=== PATIENT | female | born 1995 | race Caucasian/White ===

== ENCOUNTER 2021-08-19 12:24 | Inpatient (IN) ==
[2021-08-19] MEDS ORDERED: ALUMINUM/MAGNESIUM SUSP 30 ML UDC PO PRN (13:06)
--- NOTE | 2021-08-19 13:09 | Obstetrical Progress Note ---
Date of Service August 19, 2021 Assessment & Plan (1) with 38 completed weeks gestation: (2) Upper abdominal pain: Plan: NOt sure what is going on at this point. NOt convinced this is labor although she is lisa--will monitor and recheck cervix. The pain she is describing not really consistent with labor pain as only upper abdomen and constant. Vitals are all wnl, no hypertension, pulse normal. Do not suspect she is having a PE given the description of the pain, and stable vitals, but will check pulse ox. Will get some labs, r/o atypical preeclampsia, and a RUQ ultrasound to evaluate the liver and the gall bladder. Fetus is a category one. Will continue to monitor closely. Subjective Patient is a [id number] who presents to labor and delivery with upper abdominal pain. She notes sudden onset of this pain at 4pm yesterday and it has persisted. she talked to the oncall doctor x 2. Recommended things for gas, hot shower/bath. She tried on dose of maalox last night and it did not touch it. She notes this is constant since onset. She rates it a 7 /10. Has a hard time finding a comfortable position because of this. She notes she feels sob because every time she tries to take a deep breath, she notes discomfort in the upper abdomen, not particularly in the chest. She notes this pain is across her upper abdomen both sides and goes up into the mid chest and occasionally in the left shoulder. Patient notes a little mucous d/c but no lof/vb. Patient notes she has her GB. Patient notes she has not had a lot of burping. Notes passing gas and had some small amount of diarrhea this am. She notes that she also has lower back pain that is coming and going. She initially was in the ED and briefly evaluated by Ed physician. He notes her EKG was wnl, pulse in 60s. He thought it really was labor and so now she is up here. If turns out not to be labor , he noted we could send her back downstairs. She notes good fm. Physical Exam Constitutional: WD/WN, vitals as above Cardiovascular: Extremities: + edema (tr); no calf tenderness Gastrointestinal (Abdomen): soft, gravid, nt Psychiatric: A+Ox3, euthymic affect Genitourinary: cx--1-2/50/-2/soft, cephalic toco--4-7 min, irregular efm--130s with mod variability, accels to 160s, no decels Results & Data ([facility]) Vital Signs (Past 12 Hours) Vital Signs Pulse BP 08/19/21 12:39 61 124/70 PG Care Time/CCT Total # of Minutes Spent Total Time Spent with Patient: Total time spent is greater than 50% in coordination of care (as documented) at patient's floor/unit and/or counseling patient: Coding Level of Care Code None Diagnoses with 38 completed weeks gestation Z3A.38 Upper abdominal pain R10.10
[2021-08-19 13:20] LABS: Hematocrit (blood only) 36.6 % (37-47); Hemoglobin 12.5 g/dL (12.0-16.0); Mean Corpuscular Hemoglobin 30.9 pg (25-34); Mean Corpuscular Hgb Conc 34.2 g/dL (32-36); Mean Corpuscular Volume 90.6 fL (80-100); RDW Coefficient of Variation 14.2 % (11.5-14.5); RDW Standard Deviation 47.1 fL (36.4-46.3); Red Blood Count 4.04 M/uL (4.2-5.4); White Blood Count 12.23 K/uL (4.8-10.8)
[2021-08-19 13:42] LABS: Basophils # (auto) 0.01 K/uL (0-0.2); Basophils % (auto) 0.1 %; Eosinophils # (auto) 0.01 K/uL (0-0.5); Eosinophils % (auto) 0.1 %; Immature Granulocytes % (auto) 0.8 %; Lymphocytes % (auto) 13.9 %; Mean Platelet Volume 10.6 fL (7.4-10.4); Monocytes # (auto) 0.77 K/uL (0.11-0.59); Monocytes % (auto) 6.3 %; Neutrophils # (auto) 9.64 K/uL (1.4-6.5); Neutrophils % (auto) 78.8 %; Platelet Count 95 K/uL (130-400); Platelet Estimate Decreased (Normal)
[2021-08-19 13:45] LABS: Alanine Aminotransferase 258 U/L (7-52); Albumin Globulin Ratio 1.3 (0.9-2); Albumin Level 3.4 gm/dl (3.4-5.0); Alkaline Phosphatase 107 U/L (34-104); Amylase 41 U/L (25-115); Anion Gap 9 (3-11); Aspartate Aminotransferase 221 U/L (13-39); BUN Creatinine Ratio 17.9 (10-20); Bilirubin,Total 2.1 mg/dl (0.2-1.0); Blood Urea Nitrogen 10 mg/dl (6-23); Carbon Dioxide 21 mmol/L (21-32); Chloride 102 mmol/L (98-107); Est GFR (African American) > 150.0 ml/min; Est GFR (Non-African American) 129.6 ml/min; Globulin 2.7 gm/dl (2.5-4.0); Glucose 76 mg/dl (70-99(Fasting)); Lipase 18 U/L (11-82); Potassium 4.1 mmol/L (3.5-5.1); Sodium 132 mmol/L (136-145); Total Protein 6.1 gm/dl (6.0-8.3)
[2021-08-19] MEDS: SIMETHICONE 80 MG CHEW PO PRN (13:47)
[2021-08-19] MEDS ORDERED: OXYTOCIN 30 UNITS/500 ML BAG IV PRN ×2 (13:54→14:00)
[2021-08-19] MEDS ORDERED: MAG SULFATE 6GM BOLUS FROM BAG IV ONE (13:58)
[2021-08-19] MEDS ORDERED: SODIUM CHLORIDE 0.9% INJ 10 ML VIAL ONE (14:19)
[2021-08-19] MEDS ORDERED: ePHEDrine sulfate 50 MG/ML AMP ONE (14:19)
[2021-08-19] MEDS ORDERED: BUPIVACAINE 0.25% 30 ML VIAL ONE (14:19)
--- NOTE | 2021-08-19 14:19 | History & Physical Report ---
Date of Service August 19, 2021 Assessment & Plan (1) with 38 completed weeks gestation: (2) Severe preeclampsia: Plan: Although patient pressures are normal, she demonstrates HELLP per her labs and has upper abdominal pain consistent with this. Therefore, she has pet with severe features. She will be admitted for induction. cx is favorable so will start with pitocin. Fetus category one. As she has severe features, will start mag sulfate prophylaxis. Discussed the situation with anesthesia. Patient desires epidural for her labor. Asked if we could place epidural now while plts still >90K in case they trend down with time. Then run the epidural when she has onset of contraction pain. Dr. Carrera is agreeable. Explained the situation to the patient and the father of the baby. They are appropriately distressed but express understanding of the situation and the plan. Anticipate . History of Present Illness Chief Complaint: upper abdominal pain Primary Care Provider: EVELYNE Giron Patient is a [id number] who presents to labor and delivery with upper abdominal pain. She notes sudden onset of this pain at 4pm yesterday and it has persisted. she talked to the oncall doctor x 2. Recommended things for gas, hot shower/bath. She tried on dose of maalox last night and it did not touch it. She notes this is constant since onset. She rates it a 7 /10. Has a hard time finding a comfortable position because of this. She notes she feels sob because every time she tries to take a deep breath, she notes discomfort in the upper abdomen, not particularly in the chest. She notes this pain is across her upper abdomen both sides and goes up into the mid chest and occasionally in the left shoulder. Patient notes a little mucous d/c but no lof/vb. Patient notes she has her GB. Patient notes she has not had a lot of burping. Notes passing gas and had some small amount of diarrhea this am. She notes that she also has lower back pain that is coming and going. She initially was in the ED and briefly evaluated by Ed physician. He notes her EKG was wnl, pulse in 60s. He thought it really was labor and so now she is up here. If turns out not to be labor , he noted we could send her back downstairs. She notes good fm. Labs drawn and plts are 95K( 13:10), ast 221, alt--258. Plts were 107K at 12:19. Labs were redrawn as I had not realized they were drawn in the ED. 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 OB Labs: Blood Type O Negative 01/23/21 Antibody Screen NEGATIVE 06/12/21 Hemoglobin 11.7 g/dL (12.0-16.0) L 06/12/21 Hematocrit 34.4 % (37-47) L 06/12/21 Mean Corpuscular Volume 94.4 fL (80-100) 01/23/21 Platelet Count 248 K/uL (130-400) 01/23/21 Rubella IgG Antibody Immune (Immune) 01/23/21 Rapid Plasma Reagin Nonreactive (Nonreactive) 01/23/21 Hepatitis B Surface Antigen Neg (Neg) 01/23/21 HIV (1&2) Ab and P24 Ag, 4th Gener Neg (Neg) 01/23/21 Glucose 1 Hour 50 gm Load 97 mg/dl (70-130) 06/12/21 OB Optional Labs: Chlamydia trachomatis RNA NOT DETECTED (NOT DETECTED)B 01/23/21 Neisseria gonorrhoeae RNA NOT DETECTED (NOT DETECTED) 01/23/21 Labs Reviewed: declines genetics/cf/sma GBS neg Allergies Allergy/AdvReac Type Severity Reaction Status Date / Time No Known Allergies Allergy Verified 08/14/21 14:47 Home Medications Medication Instructions Recorded Confirmed Type breast pump #1 ea 07/28/21 08/14/21 Rx prenat.vits,william,[id number]-[id number] 1 tab PO DAILY 08/19/21 08/19/21 History Patient History Medical History Back strain History of chicken pox No pertinent past medical history Surgical History H/O oral surgery Family History Grandmother (Maternal) Diabetes Father Hypertension Mother Hypertension Denies family history of Ovarian cancer Breast cancer Colorectal cancer Social History Smoking Status: Never smoker Second Hand Exposure: No; Hx Alcohol Use: No Hx Substance Use: No Preferred Language: Bur[place]ian Tobacco Stripper Hand Required: No Beliefs That Will Affect Care: None marital status: marital status details: Bal Murry (26) [phone] Current Living Situation: Spouse Current Living Situation Comment: lives with spouse, dogs current occupational status: employed 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 Other Information That Helps Us Care for You: No Feels Safe at Home: Yes Safety Concerns: Feels Safe At This Time caffeine: No Dental Care, Regularly: Yes Physical Activity Frequency: Daily Seatbelt Use: always Sunscreen Use: Yes Assistive Devices: None 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 Physical Exam Constitutional: WD/WN, vitals as above Cardiovascular: Extremities: + edema (tr); no calf tenderness Gastrointestinal (Abdomen): soft, gravid, nt Psychiatric: A+Ox3, euthymic affect Genitourinary: cx--1-2/50/-2/soft, cephalic toco--4-7 min, irregular efm--130s with mod variability, accels to 160s, no decels Results & Data ([facility]) Vital Signs (Past 12 Hours) Vital Signs Temp Pulse Resp BP Pulse Ox 08/19/21 14:16 70 100 08/19/21 14:11 76 100 08/19/21 14:06 65 100 08/19/21 14:01 87 100 08/19/21 13:56 55 L 100 08/19/21 13:51 54 L 100 08/19/21 13:46 60 100 08/19/21 13:41 54 L 100 08/19/21 13:36 56 L 100 08/19/21 13:31 61 100 08/19/21 13:26 54 L 100 08/19/21 13:21 66 100 08/19/21 12:47 37.2 C 20 08/19/21 12:39 61 124/70 Coding Level of Care Code None Diagnoses with 38 completed weeks gestation Z3A.38 Severe preeclampsia O14.10
[2021-08-19] MEDS ORDERED: fentaNYL citrate 100 MCG/2 ML VIAL ONE (14:20)
[2021-08-19] MEDS: LACTATED RINGER'S 1,000 ML IV PRN ×2 (14:22→18:37)
[2021-08-19] MEDS: MAGNESIUM SULFATE / WTR 40 GM/1,000 ML BAG IV SCH (14:41)
--- NOTE | 2021-08-19 14:49 | Anesthesiology Consultation ---
Date of Service August 19, 2021 Assessment & Plan (1) Encounter for pre-operative examination: Chart Review Chart Review: Acceptable Risk for Labor Epidural Consults Requested none ASA ASA3 Proposed Anesthesia Anesthesia Type: Labor Epidural Risk / Benefits Reviewed With: PT / POA / Parent / Guardian, Accepts Plan and Informed Consent Obtained Additional Comments: Platelets are currently stable at 95K. Plan is to place epidural now and to start the epidural infusion when the patient develops labor pains. Dr. Stokes is aware and amenable with the plan. History Height/Weight Height: 5 ft 3 in Weight: 84.368 kg Allergies Allergy/AdvReac Type Severity Reaction Status Date / Time No Known Allergies Allergy Verified 08/14/21 14:47 Medications Home Medications Medication Instructions Recorded Confirmed Last Taken breast pump #1 ea 07/28/21 08/14/21 Unknown prenat.vits,william,gtk-[id number] 1 tab PO DAILY 08/19/21 08/19/21 08/18/21 21:00 Active Medications Generic Name Dose Route Start Last Admin Trade Name Freq PRN Reason Stop Dose Admin Lactated Ringer's 1,000 mls @ 125 mls/hr 08/19/21 13:54 08/19/21 14:22 Lr IV 08/21/21 13:53 999 mls/hr .Q8H PRN Administration L&D Protocol Protocol Simethicone 80 mg 08/19/21 13:05 08/19/21 13:47 Simethicone 80 Mg Chew PO 09/18/21 13:04 80 mg Q6H PRN Administration gas pain Past Medical History Medical History Back strain History of chicken pox No pertinent past medical history Exercise / Class Metabolic Activity II 4-5 Yardwork/Stairs/Walk up hill Past Family History Family History Grandmother (Maternal) Diabetes Father Hypertension Mother Hypertension Denies family history of Ovarian cancer Breast cancer Colorectal cancer Past Surgical History Surgical History H/O oral surgery Past Anesthesia History No Hx of Anesthesia Complications and No Family Hx of Anesthesia Complications History of PONV No Hx of PONV and No Hx of Motion Sickness Social History Smoking Status: Never smoker Hx Alcohol Use: No Hx Substance Use: No substance use type: does not use Physical Exam Vital Signs Last Vital Signs Temp 99.0 F 08/19/21 12:47 Pulse 72 08/19/21 14:41 Resp 20 08/19/21 12:47 BP 124/70 08/19/21 12:39 Pulse Ox 100 08/19/21 14:41 ENMT Mouth: no dentition abnormality Thyromental Distance: > or= 3.5 Finger Breadths Mallampati Class: II Neck normal visual inspection Respiratory normal respiratory effort Auscultation: lungs clear to auscultation bilaterally Cardiovascular Rate/Rhythm: regular rate and regular rhythm Testing Laboratory Results 08/19/21 13:10 08/19/21 13:10
[2021-08-19] MEDS ORDERED: ONDANSETRON INJ 2 MG/ML 2 ML VIAL IV PRN (15:14)
[2021-08-19] MEDS ORDERED: ePHEDrine sulfate 50 MG/ML AMP IV PRN (15:14)
[2021-08-19] MEDS ORDERED: NALOXONE HCL 0.4 MG/1 ML VIAL/CARP IV PRN (15:14)
[2021-08-19] MEDS ORDERED: fentaNYL 2MCG/ML ROPIVACAINE 1.25MG/ML 100 ML BAG EPI PRN (15:14)
[2021-08-19] MEDS ORDERED: diphenhydrAMINE 50 MG/ML VIAL IV PRN (15:14)
[2021-08-19] MEDS ORDERED: NALBUPHINE HCL INJ 10 MG/ML AMP IV PRN (15:14)
[2021-08-19] MEDS ORDERED: NALOXONE HCL 1 MG in SODIUM CHLORIDE 0.9% 1000ML 1,000 ML IV PRN (15:14)
[2021-08-19 17:57] LABS: Hematocrit (blood only) 38.2 % (37-47); Mean Corpuscular Hemoglobin 31.1 pg (25-34); Mean Corpuscular Volume 91.4 fL (80-100); RDW Coefficient of Variation 14.3 % (11.5-14.5); RDW Standard Deviation 47.7 fL (36.4-46.3); Red Blood Count 4.18 M/uL (4.2-5.4)
[2021-08-19 18:16] LABS: Albumin Globulin Ratio 1.2 (0.9-2); Albumin Level 3.4 gm/dl (3.4-5.0); BUN Creatinine Ratio 16.1 (10-20); Bilirubin,Total 2.5 mg/dl (0.2-1.0); Calcium 8.9 mg/dl (8.5-10.1); Creatinine Clr Calc Pharmacy 142.7 ml/min; Est GFR (African American) 145.3 ml/min; Est GFR (Non-African American) 125.3 ml/min; Globulin 2.8 gm/dl (2.5-4.0); Potassium 4.1 mmol/L (3.5-5.1); Total Protein 6.2 gm/dl (6.0-8.3)
[2021-08-19 18:39] LABS: Mean Platelet Volume 10.8 fL (7.4-10.4); Platelet Count 81 K/uL (130-400)
--- NOTE | 2021-08-19 19:53 | Communication Note ---
Date of Service: August 19, 2021 The patient was starting to have labor pain. The epidural pump was initiated. The epidural was bolused with 3mL of 0.25% bupivacaine. The patient stated h aving improvement in her labor pain. VSS throughout.
--- NOTE | 2021-08-19 20:09 | Labor Progress Brief Note ---
Date of Service August 19, 2021 Subjective Patient got uncomfortable and got epidural dosed. she's feeling better now. Notes her upper abdominal pain is still there, but slightly better. She notes no itching. NO garrison/vision changes. no n/v. 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 uop good. alk phos wnl for . I called MEDARDO Soriano at [facility] , for a consultation. My big question was are we dealing with AFLP or Hellp. Unfortunately, can be hard to know. However, the management at this point is the same. Agreed with mag prophylaxis. As long as maternal and condition remain stable, ok to proceed with vaginal delivery. No reason to do c /s at this point. She did note that if her plts drop to below 50K that I should transfuse in case of c/s. Will get coags/fibrinogen with next draw but advised not to treat unless actively bleeding or proceed to c/s. Post delivery, continue mag and following labs to demonstrate stabilization/improvement. If don't improve, going to need to transfer to tertiary care center for specialist care. Dr. Posey does not think we need to do that at this point as they would not be doing anything differently. I explained this all to patient and FOB who expressed understanding. Admission and Anticipated Discharge Date Admission Date: August 19, 2021 Physical Exam Constitutional: WD/WN, vitals as above Cardiovascular: Extremities: + edema (tr); no calf tenderness Gastrointestinal (Abdomen): soft, nd, gravid, tender across upper abdomen mahendra in epigastric region Skin: no rashes, warm and dry (no jaundice) Neurologic: patellar DTR's 2+ bilat, sensation intact (no clonus) Psychiatric: A+Ox3, euthymic affect Genitourinary: cx--tight 3/75/-2 toco--q2-4min, runs of contractions, pit at 9 efm--140s with mod variability, accels to 160s, no decels Results & Data ([facility]) Vital Signs (Past 12 Hours) Vital Signs Temp Pulse Resp BP Pulse Ox 08/19/21 19:57 95 H 155/87 H 08/19/21 19:55 91 H 99 08/19/21 19:51 90 151/65 H 08/19/21 19:50 87 99 08/19/21 19:46 83 152/77 H 08/19/21 19:45 99 H 99 08/19/21 19:42 78 134/64 08/19/21 19:40 81 99 08/19/21 19:35 71 99 08/19/21 19:34 70 135/65 08/19/21 19:32 83 132/64 08/19/21 19:30 72 139/63 99 08/19/21 19:28 72 130/63 08/19/21 19:26 90 143/70 H 08/19/21 19:25 80 98 08/19/21 19:24 75 132/60 08/19/21 19:22 71 134/61 08/19/21 19:20 78 136/63 99 08/19/21 19:18 78 137/64 08/19/21 19:16 81 132/65 08/19/21 19:15 80 98 08/19/21 19:14 70 130/60 08/19/21 19:12 85 141/65 H 08/19/21 19:10 85 18 135/57 L 99 08/19/21 19:08 88 135/64 08/19/21 19:06 77 138/65 08/19/21 19:05 74 98 08/19/21 19:04 76 135/65 08/19/21 19:01 37.1 C 18 08/19/21 19:00 84 99 08/19/21 18:58 82 134/72 08/19/21 18:29 81 129/62 08/19/21 18:15 20 08/19/21 17:58 78 128/65 08/19/21 17:28 37.1 C 74 20 133/69 08/19/21 16:58 72 137/65 08/19/21 16:29 74 140/66 08/19/21 15:58 68 139/73 08/19/21 15:15 93 H 137/74 08/19/21 15:11 99 H 135/76 97 08/19/21 15:06 101 H 98 08/19/21 15:01 108 H 98 08/19/21 14:56 94 H 99 08/19/21 14:51 96 H 99 08/19/21 14:46 87 100 08/19/21 14:41 72 100 08/19/21 14:36 70 100 08/19/21 14:31 65 100 08/19/21 14:26 72 100 08/19/21 14:21 59 L 100 08/19/21 14:16 70 100 08/19/21 14:11 76 100 08/19/21 14:06 65 100 08/19/21 14:01 87 100 08/19/21 13:56 55 L 100 08/19/21 13:51 54 L 100 08/19/21 13:46 60 100 08/19/21 13:41 54 L 100 08/19/21 13:36 56 L 100 08/19/21 13:31 61 100 08/19/21 13:26 54 L 100 08/19/21 13:21 66 100 08/19/21 12:47 37.2 C 20 08/19/21 12:39 37.2 C 61 20 124/70 Coding Level of Care Code None Diagnoses HELLP (hemolytic anemia/elev liver enzymes/low platelets in ) O14.20
[2021-08-19] MEDS ORDERED: SODIUM CHLORIDE 0.9% 500 ML IV SCH (20:15)
[2021-08-19 21:37] LABS: Protein Creatinine Ratio Urine 0.3 (0-0.2)
[2021-08-19 22:39] LABS: Hematocrit (blood only) 37.6 % (37-47); Hemoglobin 12.8 g/dL (12.0-16.0); Mean Corpuscular Hemoglobin 31.1 pg (25-34); Mean Corpuscular Volume 91.5 fL (80-100); RDW Coefficient of Variation 14.3 % (11.5-14.5); RDW Standard Deviation 47.9 fL (36.4-46.3); Red Blood Count 4.11 M/uL (4.2-5.4); White Blood Count 12.05 K/uL (4.8-10.8)
[2021-08-19 22:40] LABS: Platelet Count 67 K/uL (130-400)
[2021-08-19 22:54] LABS: ALC (manual) 2.07 K/uL (1.2-3.4); ANC (manual) 9.57 K/uL (1.4-6.5); Lymphocytes # (manual) 2.07 K/uL (1.2-3.4); Lymphocytes % (manual) 17.2 %; Monocytes # (manual) 0.41 K/uL (0.11-0.59); Monocytes % (manual) 3.4 %; Neutrophils # (manual) 9.57 K/uL (1.4-6.5); Neutrophils % (manual) 79.4 %
[2021-08-19 22:58] LABS: Albumin Globulin Ratio 1.1 (0.9-2); Albumin Level 3.3 gm/dl (3.4-5.0); BUN Creatinine Ratio 17.2 (10-20); Calcium 8.3 mg/dl (8.5-10.1); Creatinine Clr Calc Pharmacy 152.6 ml/min; Est GFR (African American) 148.5 ml/min; Est GFR (Non-African American) 128.1 ml/min; Magnesium Therapeutic L&D Only 5.7 mg/dL (4.0-8.0); Potassium 4.4 mmol/L (3.5-5.1); Total Protein 6.3 gm/dl (6.0-8.3)
[2021-08-19 23:16] LABS: Fibrinogen 473 mg/dl (184-400); Prothrombin Time 9.7 Seconds (9.0-12.0)
[2021-08-19] MEDS ORDERED: SODIUM CHLORIDE 0.9% 250 ML IV PRN (23:24)
--- NOTE | 2021-08-19 23:28 | Labor Progress Brief Note ---
Date of Service August 19, 2021 Subjective comfortable with epidural. Still notes upper abdominal pain. 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 fetus category one. plts are dropping precipitously. Suspect when we repeat in 4 hours she will be less than 50K and will need transfusion. We only have 3 packs of plts in house. We are still potentially very remote from delivery--not in a good contraction pattern with pit at 13, dysfunctional. Discussed that at this hospital, our blood products are limited, mahendra plts. Given the rapidity of change in labs and mahendra drop in plts, I have recommended c/s while we are still above 50K and then transfuse after delivery when hopefully she will stabilize and improve and stop consuming plts. She expresses understanding of the situation and agrees with this course of action. I was hoping she would more quickly progress. Unfortunately am unable to adequately predict when she will deliver and may be many hours away yet. r/b of c/s discussed and consent reviewed and signed. Admission and Anticipated Discharge Date Admission Date: August 19, 2021 Physical Exam Physical Exam: cx--3/90/-2 toco--q2-4min, pit at 13, irregular and runs of contractions noted. efm--category one Constitutional: WD/WN, vitals as above Results & Data ([facility]) Vital Signs (Past 12 Hours) Vital Signs Temp Pulse Resp BP Pulse Ox 08/19/21 23:25 113 H 99 08/19/21 23:20 114 H 99 08/19/21 23:17 100 H 93 08/19/21 23:16 100 H 130/78 08/19/21 23:15 97 H 99 08/19/21 23:10 85 100 08/19/21 23:05 91 H 98 08/19/21 23:04 101 H 93 08/19/21 23:02 76 126/60 08/19/21 23:00 75 18 100 08/19/21 22:55 77 100 08/19/21 22:50 77 100 08/19/21 22:46 74 129/63 08/19/21 22:45 75 100 08/19/21 22:40 88 100 08/19/21 22:35 83 100 08/19/21 22:31 89 139/76 08/19/21 22:30 92 H 18 100 08/19/21 22:25 95 H 98 08/19/21 22:20 85 99 08/19/21 22:16 89 145/71 H 08/19/21 22:15 93 H 100 08/19/21 22:10 96 H 98 08/19/21 22:05 91 H 99 08/19/21 22:03 87 150/75 H 08/19/21 22:01 37.3 C 18 08/19/21 22:00 80 18 99 08/19/21 21:55 86 98 08/19/21 21:50 85 99 08/19/21 21:46 88 141/71 H 08/19/21 21:45 88 98 08/19/21 21:40 95 H 97 08/19/21 21:35 83 98 08/19/21 21:31 84 142/77 H 08/19/21 21:30 83 18 97 08/19/21 21:25 86 98 08/19/21 21:20 89 98 08/19/21 21:17 89 142/78 H 08/19/21 21:15 85 98 08/19/21 21:10 94 H 97 08/19/21 21:05 88 98 08/19/21 21:02 84 133/71 08/19/21 21:00 87 20 98 08/19/21 20:55 87 99 08/19/21 20:50 83 98 08/19/21 20:47 82 126/64 08/19/21 20:45 83 99 08/19/21 20:40 85 99 08/19/21 20:35 83 99 08/19/21 20:32 94 H 125/59 L 08/19/21 20:30 91 H 18 98 08/19/21 20:25 89 97 08/19/21 20:21 36.5 C 08/19/21 20:20 90 98 08/19/21 20:17 82 129/63 08/19/21 20:15 93 H 98 08/19/21 20:10 92 H 99 08/19/21 20:05 91 H 99 08/19/21 20:01 88 141/65 H 08/19/21 20:00 100 H 18 98 08/19/21 19:57 95 H 155/87 H 08/19/21 19:55 91 H 99 08/19/21 19:51 90 151/65 H 08/19/21 19:50 87 99 08/19/21 19:46 83 152/77 H 08/19/21 19:45 99 H 99 08/19/21 19:42 78 134/64 08/19/21 19:40 81 99 08/19/21 19:35 71 99 08/19/21 19:34 70 135/65 08/19/21 19:32 83 132/64 08/19/21 19:30 72 18 139/63 99 08/19/21 19:28 72 130/63 08/19/21 19:26 90 143/70 H 08/19/21 19:25 80 18 98 08/19/21 19:24 75 132/60 08/19/21 19:22 71 134/61 08/19/21 19:20 78 20 136/63 99 08/19/21 19:18 78 137/64 08/19/21 19:16 81 132/65 08/19/21 19:15 80 20 98 08/19/21 19:14 70 130/60 08/19/21 19:12 85 141/65 H 08/19/21 19:10 85 18 135/57 L 99 08/19/21 19:08 88 135/64 08/19/21 19:06 77 138/65 08/19/21 19:05 74 18 98 08/19/21 19:04 76 135/65 08/19/21 19:01 37.1 C 18 08/19/21 19:00 84 99 08/19/21 18:58 82 134/72 08/19/21 18:29 81 129/62 08/19/21 18:15 20 08/19/21 17:58 78 128/65 08/19/21 17:28 37.1 C 74 20 133/69 08/19/21 16:58 72 137/65 08/19/21 16:29 74 140/66 08/19/21 15:58 68 139/73 08/19/21 15:15 93 H 137/74 08/19/21 15:11 99 H 135/76 97 08/19/21 15:06 101 H 98 08/19/21 15:01 108 H 98 08/19/21 14:56 94 H 99 08/19/21 14:51 96 H 99 08/19/21 14:46 87 100 08/19/21 14:41 72 100 08/19/21 14:36 70 100 08/19/21 14:31 65 100 08/19/21 14:26 72 100 08/19/21 14:21 59 L 100 08/19/21 14:16 70 100 08/19/21 14:11 76 100 08/19/21 14:06 65 100 08/19/21 14:01 87 100 08/19/21 13:56 55 L 100 08/19/21 13:51 54 L 100 08/19/21 13:46 60 100 08/19/21 13:41 54 L 100 08/19/21 13:36 56 L 100 08/19/21 13:31 61 100 08/19/21 13:26 54 L 100 08/19/21 13:21 66 100 08/19/21 12:47 37.2 C 20 08/19/21 12:39 37.2 C 61 20 124/70 Coding Level of Care Code None Diagnoses HELLP (hemolytic anemia/elev liver enzymes/low platelets in ) O14.20
[2021-08-19] MEDS ORDERED: LACTATED RINGER'S 1,000 ML IV SCH (23:30)
[2021-08-19] MEDS ORDERED: LIDOCAINE 2%/EPINEPHRINE 1:200,000 20 ML SDV ONE (23:33)
[2021-08-19] MEDS ORDERED: CITRIC ACID/SODIUM CITRATE 15 ML UDC PO SCH (23:35)
[2021-08-20] MEDS ORDERED: MoRPHine SULFATE PF 1 MG/ML 10 ML AMP/VIAL ONE (00:19)
[2021-08-20] MEDS ORDERED: miSOPROStoL 200 MCG TAB ONE (00:30)
[2021-08-20] MEDS ORDERED: OXYTOCIN 10 UNITS/ML 10ML VIAL ONE (00:31)
[2021-08-20] MEDS ORDERED: CARBOPROST TROMETHAMINE 250 MCG/ML AMPUL ONE (00:31)
[2021-08-20] MEDS ORDERED: PHENYLEPHRINE 100MCG/ML 5ML SYR ONE (00:32)
[2021-08-20] MEDS ORDERED: LACTATED RINGER'S 500 ML IV PRN ×2 (00:33→01:09)
[2021-08-20] MEDS ORDERED: NALOXONE HCL 1 MG in SODIUM CHLORIDE 0.9% 1000ML 1,000 ML IV PRN ×2 (00:33→01:09)
[2021-08-20] MEDS ORDERED: diphenhydrAMINE 50 MG/ML VIAL IV PRN ×3 (00:33→19:09)
[2021-08-20] MEDS ORDERED: MoRPHine SULFATE PF 1 MG/ML 10 ML AMP/VIAL INT SPINAL ONE ×2 (00:33→01:09)
[2021-08-20] MEDS ORDERED: NALOXONE HCL 0.4 MG/1 ML VIAL/CARP IV PRN ×2 (00:33→01:09)
[2021-08-20] MEDS ORDERED: NALBUPHINE HCL INJ 10 MG/ML AMP IV PRN ×2 (00:33→01:09)
[2021-08-20] MEDS ORDERED: NALOXONE HCL 0.08 MG in SYRINGE 1.8 ML IV PRN ×2 (00:33→01:09)
[2021-08-20] MEDS ORDERED: MEPERIDINE HCL 25 MG/ML CARP/VIAL IV PRN (00:33)
[2021-08-20] MEDS ORDERED: KETOROLAC 30 MG/ML VIAL IV PRN (00:33)
[2021-08-20] MEDS ORDERED: ONDANSETRON INJ 2 MG/ML 2 ML VIAL IV PRN ×3 (00:33→19:09)
[2021-08-20] MEDS ORDERED: ePHEDrine sulfate 50 MG/ML AMP IV PRN ×2 (00:33→01:09)
[2021-08-20] MEDS ORDERED: ONDANSETRON INJ 2 MG/ML 2 ML VIAL ONE (00:42)
[2021-08-20] MEDS ORDERED: NO NARCOTICS OR SEDATIVES SCH ×2 (00:45→01:15)
[2021-08-20] MEDS ORDERED: SODIUM CHLORIDE 0.9% 1000ML 1,000 ML IV SCH ×2 (00:45→01:15)
[2021-08-20] MEDS ORDERED: DC INTRASPINAL MORPHINE SCH ×2 (00:45→01:15)
[2021-08-20] MEDS ORDERED: SUPERCREAM 0.870% 15 GM JAR EXT PRN (01:12)
[2021-08-20] MEDS ORDERED: SENNA 8.6 MG TAB PO PRN (01:12)
[2021-08-20] MEDS ORDERED: HYDROCORTISONE ACETATE 25 MG SUPP PR PRN (01:12)
[2021-08-20] MEDS ORDERED: BENZOCAINE 20% AER SPR 82.5 GM CAN EXT PRN (01:12)
[2021-08-20] MEDS ORDERED: DIPHTHERIA/TETANUS/PERTUSSIS 0.5 ML SYR/VIAL IM ONE (01:12)
[2021-08-20] MEDS ORDERED: MAGNESIUM HYDROXIDE SUSP 30 ML UDC PO PRN (01:12)
[2021-08-20] MEDS ORDERED: LACTATED RINGER'S 1,000 ML IV SCH (01:15)
--- NOTE | 2021-08-20 01:15 | Anesthesiology Progress Note ---
Date of Service August 20, 2021 Anesthesia Post Procedure Vital Signs Vital Signs: Temp Pulse Resp BP Pulse Ox 08/20/21 01:14 100 H 99 08/20/21 01:10 93 H 134/65 08/19/21 23:54 20 08/19/21 23:50 105 H 97 08/19/21 23:46 100 H 141/75 H 08/19/21 23:45 109 H 99 08/19/21 23:41 106 H 147/77 H 08/19/21 23:40 108 H 99 08/19/21 23:30 18 08/19/21 23:25 113 H 99 08/19/21 23:20 114 H 99 08/19/21 23:17 100 H 93 08/19/21 23:16 100 H 130/78 08/19/21 23:15 97 H 99 08/19/21 23:10 85 100 08/19/21 23:05 91 H 98 08/19/21 23:04 101 H 93 08/19/21 23:02 76 126/60 08/19/21 23:00 75 18 100 08/19/21 22:55 77 100 08/19/21 22:50 77 100 08/19/21 22:46 74 129/63 08/19/21 22:45 75 100 08/19/21 22:40 88 100 08/19/21 22:35 83 100 08/19/21 22:31 89 139/76 08/19/21 22:30 92 H 18 100 08/19/21 22:25 95 H 98 08/19/21 22:20 85 99 08/19/21 22:16 89 145/71 H 08/19/21 22:15 93 H 100 08/19/21 22:10 96 H 98 08/19/21 22:05 91 H 99 08/19/21 22:03 87 150/75 H 08/19/21 22:01 99.1 F 18 08/19/21 22:00 80 18 99 08/19/21 21:55 86 98 08/19/21 21:50 85 99 08/19/21 21:46 88 141/71 H 08/19/21 21:45 88 98 08/19/21 21:40 95 H 97 08/19/21 21:35 83 98 08/19/21 21:31 84 142/77 H 08/19/21 21:30 83 18 97 08/19/21 21:25 86 98 08/19/21 21:20 89 98 08/19/21 21:17 89 142/78 H 08/19/21 21:15 85 98 08/19/21 21:10 94 H 97 08/19/21 21:05 88 98 08/19/21 21:02 84 133/71 08/19/21 21:00 87 20 98 08/19/21 20:55 87 99 08/19/21 20:50 83 98 08/19/21 20:47 82 126/64 08/19/21 20:45 83 99 08/19/21 20:40 85 99 08/19/21 20:35 83 99 08/19/21 20:32 94 H 125/59 L 08/19/21 20:30 91 H 18 98 08/19/21 20:25 89 97 08/19/21 20:21 97.7 F 08/19/21 20:20 90 98 08/19/21 20:17 82 129/63 08/19/21 20:15 93 H 98 08/19/21 20:10 92 H 99 08/19/21 20:05 91 H 99 08/19/21 20:01 88 141/65 H 08/19/21 20:00 100 H 18 98 08/19/21 19:57 95 H 155/87 H 08/19/21 19:55 91 H 99 08/19/21 19:51 90 151/65 H 08/19/21 19:50 87 99 08/19/21 19:46 83 152/77 H 08/19/21 19:45 99 H 99 08/19/21 19:42 78 134/64 08/19/21 19:40 81 99 08/19/21 19:35 71 99 08/19/21 19:34 70 135/65 08/19/21 19:32 83 132/64 08/19/21 19:30 72 18 139/63 99 08/19/21 19:28 72 130/63 08/19/21 19:26 90 143/70 H 08/19/21 19:25 80 18 98 08/19/21 19:24 75 132/60 08/19/21 19:22 71 134/61 08/19/21 19:20 78 20 136/63 99 01/18/22 19:18 78 137/64 08/19/21 19:16 81 132/65 08/19/21 19:15 80 20 98 08/19/21 19:14 70 130/60 08/19/21 19:12 85 141/65 H 08/19/21 19:10 85 18 135/57 L 99 08/19/21 19:08 88 135/64 08/19/21 19:06 77 138/65 08/19/21 19:05 74 18 98 08/19/21 19:04 76 135/65 08/19/21 19:01 98.8 F 18 08/19/21 19:00 84 99 08/19/21 18:58 82 134/72 08/19/21 18:29 81 129/62 08/19/21 18:15 20 08/19/21 17:58 78 128/65 08/19/21 17:28 98.8 F 74 20 133/69 08/19/21 16:58 72 137/65 08/19/21 16:29 74 140/66 08/19/21 15:58 68 139/73 08/19/21 15:15 93 H 137/74 08/19/21 15:11 99 H 135/76 97 08/19/21 15:06 101 H 98 08/19/21 15:01 108 H 98 08/19/21 14:56 94 H 99 08/19/21 14:51 96 H 99 08/19/21 14:46 87 100 08/19/21 14:41 72 100 08/19/21 14:36 70 100 08/19/21 14:31 65 100 08/19/21 14:26 72 100 08/19/21 14:21 59 L 100 08/19/21 14:16 70 100 08/19/21 14:11 76 100 08/19/21 14:06 65 100 08/19/21 14:01 87 100 08/19/21 13:56 55 L 100 08/19/21 13:51 54 L 100 08/19/21 13:46 60 100 08/19/21 13:41 54 L 100 08/19/21 13:36 56 L 100 08/19/21 13:31 61 100 08/19/21 13:26 54 L 100 08/19/21 13:21 66 100 01/18/22 12:47 99.0 F 20 08/19/21 12:39 99.0 F 61 20 124/70 Pain Intensity Lower Abdomen: Pain Intensity: 8 Transfer of Care Handoff Completed per policy Notes Mental Status: alert / awake / arousable and participated in evaluation Nausea / Vomiting: adequately controlled Pain: adequately controlled Airway Patency, RR, SpO2: stable & adequate BP & HR: stable & adequate Hydration State: stable & adequate Neuraxial Anesthesia: was administered and sensory block is resolving Anesthetic Complications: no major complications apparent and Pt Satisfied with anesthetic care
--- NOTE | 2021-08-20 01:24 | Operative Report ---
PG Post Operative Report Pre & Post Diagnosis preop diagnosis-- at 38 weeks worsening HELLP syndrome remote from delivery postop diagnosis--same Operation Date: 08/19/21 23:25 <No data on this case meets the specified criteria> I identified the patient and participated in the time-out.: Yes Procedure procedure--primary low transverse Operation Date: 08/19/21 23:25 <No data on this case meets the specified criteria> Surgeon Kim Stokes MD, FACOG Grounds Restoration Specialist Dr. Rodriguez Estimated Blood Loss 1,000 Findings Consistent with Post-Op Diagnosis viable male , body cord, clear fluid, apgars 7/8. nl uterus/tubes /ovs Fluids 1000cc, uop--200cc Specimens placenta, cord blood Drains buck Anesthesia Type Labor Epidural Complications none Disposition Accompanied Patient To Recovery: Yes Disposition: L&D Indications Patient is a 25yowf with iup at 38 weeks and worsening hellp syndrome, remote from labor. Description of Procedure The patient was taken to the operating room where she was identified verbally and by bracelet. She was seated on the operating table where her epidural anesthetic was dosed by anesthesia. She was then placed in the supine position with a leftward tilt. A Buck catheter had been previously placed sterilely. the patient was prepped and draped in a normal standard fashion. the anesthetic was tested and found to be adequate. A time-out was held, identifying correct patient, procedure, positioning and preoperative antibiotics. There were no concerns. A Pfannenstiel skin incision was made with a knife and taken down to the underlying layer of fascia with the knife and Bovie electrocautery. Bleeding was attended to with the Bovie. The fascia was incised in the midline with the knife and taken out laterally with scissors. The superior edge of the fascial incision was grasped, elevated and the underlying layer of rectus muscle was taken off bluntly and with scissors. In a similar fashion, the inferior edge of the fascial incision was grasped, elevated and the underlying layer of rectus muscle was taken off bluntly and with scissors. The muscles were bluntly in the midline. The peritoneum was entered bluntly. The incision was then stretched. The bladder blade was placed. The vesicouterine peritoneum was identified, entered with scissors and taken out laterally with scissors. The bladder flap was created digitally A hysterotomy incision was scored with a knife and the incision was stretched superiorly and inferiorly with the bullet swaging machine operator's fingers. The operators hand was placed into the incision and the head was delivered atraumatically. Body cord noted. The nose and mouth were bulb suctioned. the rest of the infant was then delivered without difficulty. The nose and mouth were again bulb suctioned. The cord was clamped and cut and the was then handed off to the awaiting dispatcher refinery for drying and attention. Cord blood and segment were obtained. The placenta was Manually extracted. The uterus was exteriorized and cleared of all clot and debris with moistened laparotomy sponges. The hysterotomy incision was repaired in two layers, the first in a running locked layer, the second in an imbricating layer. The uterus was boggy and treated with intrauterine hemobate and dilute pitocin. Posterior cul-de-sac was irrigated and cleared of all clot and debris. The hysterotomy incision was again inspected and found to be hemostatic. the uterus was reinteriorized. Hysterotomy incision was again inspected and 2 figure of eight stutures needed for hemostasis. Edilma was placed over the incision and pressure held for about three minutes. Hemostasis was found to be good. Rectus muscles were closely inspected and no bleeding noted. The fascia was then reapproximated with 0 Vicryl starting at the edges and meeting in the midline. The subcuticular tissues were copiously irrigated and bleeding was attended to with cautery. The skin was then closed with 4-0 Vicryl in a subcuticular fashion. All sponge lap and needle counts were correct x 2. The patient was then frog legged and about 500cc of blood and clot was removed from the uterus with fundal massage. 800mcg of cytotec was placed rectally. The uterus was firm after this. The patient was taken to labor and delivery for recovery in stable condition. Bleeding during the surgery itself was not excessive other than the boggy uterus which was treated. There was not significant oozing. I attest to the content of the Intraoperative Record and any orders documented therein. Any exceptions are noted below. OB Procedure Charges 70157
--- NOTE | 2021-08-20 01:26 | Communication Note ---
Date of Service: August 20, 2021 Plan or recheking labs in 2 hours from surgery at 3am. Will need to stay away from nsaids and tylenol for pain management at this time because of plts and elevated liver functions. Patient was given duramorph in her epidural. Epidural remains indwelling until recovery of plts makes it safe to remove. Will continue to watch the patient very closely.
[2021-08-20] MEDS ORDERED: OXYTOCIN 20 UNITS in LACTATED RINGER'S 1,000 ML IV SCH (01:30)
[2021-08-20] MEDS: MoRPHine SULFATE 2 MG/ML CARP IV PRN ×3 (01:38→17:55)
[2021-08-20 02:00] LABS: Base Excess Cord Arterial Bld -5.4 mEq/L (-9-1.8); Base Excess Cord Venous Blood -5.8 mEq/L (-7.7-1.9); CO2 Cord Arterial Blood 55 mmHg (39.1-73.5); Cord Venous Blood HCO3 21 mmol/L (18.4-26.8); Cord Venous Blood PCO2 46 mmHg (30.4-57.2); Cord Venous Blood PO2 18 mmHg (14.1-43.3); Cord Venous Blood pH 7.28 (7.20-7.44); HCO3 Cord Arterial Blood 23 mmol/L (19.7-28.5); Oxygen Sat Cord Arterial Blood < 60.0 % (<60); PO2 Cord Arterial Blood 13 mmHg (4.1-31.7); pH Cord Arterial Blood 7.24 (7.1-7.38)
[2021-08-20 02:01] LABS: O2 Saturation Cord Venous Bld < 60.0 % (<68)
[2021-08-20 03:14] LABS: Hematocrit (blood only) 31.4 % (37-47); Hemoglobin 10.8 g/dL (12.0-16.0); Mean Corpuscular Hemoglobin 31.3 pg (25-34); Mean Corpuscular Hgb Conc 34.4 g/dL (32-36); RDW Coefficient of Variation 14.5 % (11.5-14.5); RDW Standard Deviation 47.9 fL (36.4-46.3); Red Blood Count 3.45 M/uL (4.2-5.4); White Blood Count 12.08 K/uL (4.8-10.8)
[2021-08-20 03:26] LABS: Fibrinogen 403 mg/dl (184-400); Partial Thromboplastin Ratio 1.1; Partial Thromboplastin Time 28.5 Seconds (21.0-31.0); Prothrombin Time 10.1 Seconds (9.0-12.0)
[2021-08-20 03:30] LABS: Mean Platelet Volume 10.9 fL (7.4-10.4); Platelet Count 60 K/uL (130-400)
[2021-08-20 03:33] LABS: Albumin Globulin Ratio 1.2 (0.9-2); Albumin Level 2.9 gm/dl (3.4-5.0); BUN Creatinine Ratio 17.7 (10-20); Bilirubin,Total 2.5 mg/dl (0.2-1.0); Calcium 7.2 mg/dl (8.5-10.1); Creatinine Clr Calc Pharmacy 142.7 ml/min; Est GFR (African American) 145.3 ml/min; Est GFR (Non-African American) 125.3 ml/min; Globulin 2.4 gm/dl (2.5-4.0); Magnesium Therapeutic L&D Only 5.6 mg/dL (4.0-8.0); Potassium 4.2 mmol/L (3.5-5.1); Total Protein 5.3 gm/dl (6.0-8.3)
--- NOTE | 2021-08-20 03:47 | Obstetrical Progress Note ---
Date of Service August 20, 2021 Assessment & Plan (1) HELLP (hemolytic anemia/elev liver enzymes/low platelets in ): Clinically doing better. plts are starting to flatten out from 67K prior to surgery to 60K now. Lfts have bumped slightly bumped. hgb is 10.8 c/w c- section. coags are wnl. fibrinogen drop c/w fibrinogen. Continues on Mag. Will repeat labs in 4 hours. Continue to watch closely. Subjective Patient is sitting in bed, alert and oriented. She notes that her upper abdominal pain is much improved. She is feeling better. Per nursing, her bleeding is scant and her uterus is firm. Physical Exam Constitutional WD/WN, vitals as above Psychiatric A+Ox3, euthymic affect Results & Data ([facility]) Vital Signs (Past 12 Hours) Vital Signs Temp Pulse Resp BP Pulse Ox 08/20/21 03:40 114 H 96/45 L 08/20/21 03:39 122 H 96 08/20/21 03:34 122 H 95 08/20/21 03:30 120 H 125/57 L 08/20/21 03:29 117 H 96 08/20/21 03:24 118 H 97 08/20/21 03:20 112 H 135/63 08/20/21 03:19 111 H 96 08/20/21 03:14 114 H 97 08/20/21 03:10 118 H 135/62 08/20/21 03:09 120 H 20 97 08/20/21 03:04 119 H 96 08/20/21 03:00 112 H 135/63 08/20/21 02:59 114 H 96 08/20/21 02:54 111 H 96 08/20/21 02:50 116 H 143/93 H 08/20/21 02:49 106 H 96 08/20/21 02:44 115 H 97 08/20/21 02:40 122 H 127/60 08/20/21 02:39 124 H 96 08/20/21 02:34 119 H 97 08/20/21 02:30 110 H 126/58 L 08/20/21 02:29 118 H 96 08/20/21 02:24 120 H 96 08/20/21 02:20 123 H 134/71 08/20/21 02:19 122 H 96 08/20/21 02:17 115 H 94 01/19/22 02:14 112 H 91 08/20/21 02:09 118 H 20 124/57 L 96 08/20/21 02:04 110 H 97 08/20/21 02:00 115 H 132/63 08/20/21 01:59 120 H 18 96 08/20/21 01:58 115 H 94 08/20/21 01:54 115 H 95 08/20/21 01:50 100 H 128/59 L 08/20/21 01:49 100 H 18 128/59 L 97 08/20/21 01:44 92 H 97 08/20/21 01:39 100 H 20 128/59 L 97 08/20/21 01:34 98 H 97 08/20/21 01:30 86 131/57 L 08/20/21 01:29 100 H 18 128/59 L 98 08/20/21 01:24 92 H 99 08/20/21 01:23 86 146/78 H 08/20/21 01:19 92 H 18 97 08/20/21 01:14 100 H 99 08/20/21 01:10 93 H 134/65 08/20/21 01:09 37.1 C 20 08/19/21 23:54 20 08/19/21 23:50 105 H 97 08/19/21 23:46 100 H 141/75 H 08/19/21 23:45 109 H 99 08/19/21 23:41 106 H 147/77 H 08/19/21 23:40 108 H 99 08/19/21 23:30 18 08/19/21 23:25 113 H 99 08/19/21 23:20 114 H 99 08/19/21 23:17 100 H 93 08/19/21 23:16 100 H 130/78 08/19/21 23:15 97 H 99 08/19/21 23:10 85 100 08/19/21 23:05 91 H 98 08/19/21 23:04 101 H 93 08/19/21 23:02 76 126/60 08/19/21 23:00 75 18 100 08/19/21 22:55 77 100 08/19/21 22:50 77 100 08/19/21 22:46 74 129/63 08/19/21 22:45 75 100 08/19/21 22:40 88 100 08/19/21 22:35 83 100 08/19/21 22:31 89 139/76 08/19/21 22:30 92 H 18 100 08/19/21 22:25 95 H 98 08/19/21 22:20 85 99 08/19/21 22:16 89 145/71 H 08/19/21 22:15 93 H 100 08/19/21 22:10 96 H 98 08/19/21 22:05 91 H 99 08/19/21 22:03 87 150/75 H 08/19/21 22:01 37.3 C 18 08/19/21 22:00 80 18 99 08/19/21 21:55 86 98 08/19/21 21:50 85 99 08/19/21 21:46 88 141/71 H 08/19/21 21:45 88 98 08/19/21 21:40 95 H 97 08/19/21 21:35 83 98 08/19/21 21:31 84 142/77 H 08/19/21 21:30 83 18 97 08/19/21 21:25 86 98 08/19/21 21:20 89 98 08/19/21 21:17 89 142/78 H 08/19/21 21:15 85 98 08/19/21 21:10 94 H 97 08/19/21 21:05 88 98 08/19/21 21:02 84 133/71 08/19/21 21:00 87 20 98 08/19/21 20:55 87 99 08/19/21 20:50 83 98 08/19/21 20:47 82 126/64 08/19/21 20:45 83 99 08/19/21 20:40 85 99 08/19/21 20:35 83 99 08/19/21 20:32 94 H 125/59 L 08/19/21 20:30 91 H 18 98 08/19/21 20:25 89 97 08/19/21 20:21 36.5 C 08/19/21 20:20 90 98 08/19/21 20:17 82 129/63 08/19/21 20:15 93 H 98 08/19/21 20:10 92 H 99 08/19/21 20:05 91 H 99 08/19/21 20:01 88 141/65 H 08/19/21 20:00 100 H 18 98 08/19/21 19:57 95 H 155/87 H 08/19/21 19:55 91 H 99 08/19/21 19:51 90 151/65 H 08/19/21 19:50 87 99 08/19/21 19:46 83 152/77 H 08/19/21 19:45 99 H 99 08/19/21 19:42 78 134/64 08/19/21 19:40 81 99 08/19/21 19:35 71 99 08/19/21 19:34 70 135/65 08/19/21 19:32 83 132/64 08/19/21 19:30 72 18 139/63 99 08/19/21 19:28 72 130/63 08/19/21 19:26 90 143/70 H 08/19/21 19:25 80 18 98 08/19/21 19:24 75 132/60 08/19/21 19:22 71 134/61 08/19/21 19:20 78 20 136/63 99 08/19/21 19:18 78 137/64 08/19/21 19:16 81 132/65 08/19/21 19:15 80 20 98 08/19/21 19:14 70 130/60 08/19/21 19:12 85 141/65 H 08/19/21 19:10 85 18 135/57 L 99 08/19/21 19:08 88 135/64 08/19/21 19:06 77 138/65 08/19/21 19:05 74 18 98 08/19/21 19:04 76 135/65 08/19/21 19:01 37.1 C 18 08/19/21 19:00 84 99 08/19/21 18:58 82 134/72 08/19/21 18:29 81 129/62 08/19/21 18:15 20 08/19/21 17:58 78 128/65 08/19/21 17:28 37.1 C 74 20 133/69 08/19/21 16:58 72 137/65 08/19/21 16:29 74 140/66 08/19/21 15:58 68 139/73
[2021-08-20] MEDS: MEPERIDINE HCL 25 MG/ML CARP/VIAL IV PRN ×2 (03:55→15:37)
[2021-08-20] MEDS: OXYTOCIN IV SCH ×2 (04:42→18:28)
[2021-08-20] MEDS: SODIUM CHLORIDE 0.9% IV SCH ×2 (04:42→18:28)
[2021-08-20] MEDS: MAGNESIUM SULFATE / WTR 40 GM/1,000 ML BAG IV SCH (07:01)
[2021-08-20 07:31] LABS: Hemoglobin 9.9 g/dL (12.0-16.0); Mean Corpuscular Hemoglobin 30.8 pg (25-34); Mean Corpuscular Hgb Conc 34.1 g/dL (32-36); Mean Corpuscular Volume 90.3 fL (80-100); RDW Coefficient of Variation 14.6 % (11.5-14.5); RDW Standard Deviation 48.1 fL (36.4-46.3); Red Blood Count 3.21 M/uL (4.2-5.4); White Blood Count 12.31 K/uL (4.8-10.8)
[2021-08-20 07:35] LABS: Mean Platelet Volume 10.1 fL (7.4-10.4); Platelet Count 42 K/uL (130-400)
[2021-08-20 07:57] LABS: Albumin Globulin Ratio 1.2 (0.9-2); Albumin Level 2.7 gm/dl (3.4-5.0); BUN Creatinine Ratio 19.4 (10-20); Bilirubin,Total 2.7 mg/dl (0.2-1.0); Creatinine Clr Calc Pharmacy 142.7 ml/min; Est GFR (African American) 145.3 ml/min; Est GFR (Non-African American) 125.3 ml/min; Globulin 2.2 gm/dl (2.5-4.0); Magnesium Therapeutic L&D Only 5.8 mg/dL (4.0-8.0); Potassium 4.2 mmol/L (3.5-5.1); Total Protein 4.9 gm/dl (6.0-8.3)
[2021-08-20] MEDS ORDERED: DOCUSATE SODIUM 100 MG CAP PO SCH (08:00)
[2021-08-20] MEDS ORDERED: PRENATAL VITAMIN 1 TAB PO SCH (08:00)
[2021-08-20] MEDS ORDERED: FERROUS SULFATE 325 MG TAB PO SCH (08:00)
[2021-08-20] MEDS ORDERED: SODIUM CHLORIDE 0.9% 250 ML IV PRN (08:18)
--- NOTE | 2021-08-20 08:26 | Obstetrical Progress Note ---
Date of Service August 20, 2021 Assessment & Plan (1) HELLP (hemolytic anemia/elev liver enzymes/low platelets in ): Overall clinically improved. lfts are now coming down. h/h stable. Unfortunately plts now 42K. Given that she is recent pp c/s, plan to transfuse platelets. UOP >100cc per hour. Still has some blood tinged urine, but seems to be clearing up slowly. Likely from struggle to deliver the head. Will continue mag for 24 hours. Continue to monitor closely. Subjective Patient feeling overall better. Upper abd pain improved. Normal incisional pain noted. fundus firm. Lochia small. Physical Exam Constitutional WD/WN, vitals as above Cardiovascular Extremities: no calf tenderness and no edema Gastrointestinal (Abdomen) ff/appropriately tender at u dressing c/d/i. Neurologic patellar DTR's 2+ bilat, sensation intact (no clonus) Results & Data ([facility]) Vital Signs (Past 12 Hours) Vital Signs Temp Pulse Resp BP Pulse Ox 08/20/21 08:15 113 H 94 08/20/21 08:11 121 H 94 08/20/21 08:10 124 H 95 08/20/21 08:06 114 H 94 08/20/21 08:05 116 H 95 08/20/21 08:00 119 H 95 08/20/21 07:55 114 H 95 08/20/21 07:50 117 H 98 08/20/21 07:45 106 H 95 08/20/21 07:40 105 H 95 08/20/21 07:35 105 H 95 08/20/21 07:30 37.1 C 101 H 20 96 08/20/21 07:25 103 H 97 08/20/21 07:20 107 H 98 08/20/21 07:15 112 H 97 08/20/21 07:10 109 H 98 08/20/21 07:05 119 H 98 08/20/21 07:00 113 H 113/69 99 08/20/21 06:55 114 H 97 08/20/21 06:50 107 H 95 08/20/21 06:47 110 H 94 08/20/21 06:45 108 H 94 08/20/21 06:42 109 H 94 08/20/21 06:40 108 H 95 08/20/21 06:37 109 H 94 08/20/21 06:35 107 H 95 08/20/21 06:31 105 H 94 08/20/21 06:30 106 H 95 08/20/21 06:25 106 H 95 08/20/21 06:20 108 H 94 08/20/21 06:15 107 H 94 08/20/21 06:10 108 H 94 08/20/21 06:05 112 H 95 08/20/21 06:00 108 H 16 110/69 95 08/20/21 05:55 107 H 95 08/20/21 05:50 109 H 95 08/20/21 05:45 109 H 95 08/20/21 05:40 108 H 103/57 L 95 08/20/21 05:35 108 H 95 08/20/21 05:30 105 H 94 08/20/21 05:25 107 H 95 08/20/21 05:20 106 H 95 08/20/21 05:15 107 H 94 08/20/21 05:14 113 H 95 08/20/21 05:09 119 H 95 08/20/21 05:04 119 H 95 08/20/21 05:01 127 H 94 08/20/21 05:00 18 96 08/20/21 04:59 127 H 95 08/20/21 04:54 114 H 94 08/20/21 04:49 117 H 95 08/20/21 04:44 120 H 96 08/20/21 04:40 116 H 113/56 L 08/20/21 04:39 114 H 95 08/20/21 04:34 119 H 96 08/20/21 04:29 114 H 95 08/20/21 04:25 117 H 94 08/20/21 04:24 121 H 96 08/20/21 04:19 115 H 96 08/20/21 04:14 116 H 96 08/20/21 04:09 110 H 96 08/20/21 04:04 108 H 95 08/20/21 04:00 36.9 C 119 H 18 96 08/20/21 03:59 114 H 96 08/20/21 03:54 104 H 96 08/20/21 03:49 104 H 97 08/20/21 03:47 97 H 93 08/20/21 03:44 110 H 95 08/20/21 03:40 114 H 96/45 L 08/20/21 03:39 122 H 96 08/20/21 03:34 122 H 95 08/20/21 03:30 120 H 125/57 L 08/20/21 03:29 117 H 96 08/20/21 03:24 118 H 97 08/20/21 03:20 112 H 135/63 08/20/21 03:19 111 H 96 08/20/21 03:14 114 H 97 08/20/21 03:10 118 H 135/62 08/20/21 03:09 120 H 20 97 08/20/21 03:04 119 H 96 08/20/21 03:00 112 H 135/63 08/20/21 02:59 114 H 96 08/20/21 02:54 111 H 96 08/20/21 02:50 116 H 143/93 H 08/20/21 02:49 106 H 96 08/20/21 02:44 115 H 97 08/20/21 02:40 122 H 127/60 08/20/21 02:39 124 H 96 08/20/21 02:34 119 H 97 08/20/21 02:30 110 H 126/58 L 08/20/21 02:29 118 H 96 08/20/21 02:24 120 H 96 08/20/21 02:20 123 H 134/71 08/20/21 02:19 122 H 96 08/20/21 02:17 115 H 94 08/20/21 02:14 112 H 91 08/20/21 02:09 118 H 20 124/57 L 96 08/20/21 02:04 110 H 97 08/20/21 02:00 115 H 132/63 08/20/21 01:59 120 H 18 96 08/20/21 01:58 115 H 94 08/20/21 01:54 115 H 95 08/20/21 01:50 100 H 128/59 L 08/20/21 01:49 100 H 18 128/59 L 97 08/20/21 01:44 92 H 97 08/20/21 01:39 100 H 20 128/59 L 97 08/20/21 01:34 98 H 97 08/20/21 01:30 86 131/57 L 08/20/21 01:29 100 H 18 128/59 L 98 08/20/21 01:24 92 H 99 08/20/21 01:23 86 146/78 H 08/20/21 01:19 92 H 18 97 08/20/21 01:14 100 H 99 08/20/21 01:10 93 H 134/65 08/20/21 01:09 37.1 C 20 08/19/21 23:54 20 08/19/21 23:50 105 H 97 08/19/21 23:46 100 H 141/75 H 08/19/21 23:45 109 H 99 08/19/21 23:41 106 H 147/77 H 08/19/21 23:40 108 H 99 08/19/21 23:30 18 08/19/21 23:25 113 H 99 08/19/21 23:20 114 H 99 08/19/21 23:17 100 H 93 08/19/21 23:16 100 H 130/78 08/19/21 23:15 97 H 99 08/19/21 23:10 85 100 08/19/21 23:05 91 H 98 08/19/21 23:04 101 H 93 08/19/21 23:02 76 126/60 08/19/21 23:00 75 18 100 08/19/21 22:55 77 100 08/19/21 22:50 77 100 08/19/21 22:46 74 129/63 08/19/21 22:45 75 100 08/19/21 22:40 88 100 08/19/21 22:35 83 100 08/19/21 22:31 89 139/76 08/19/21 22:30 92 H 18 100 08/19/21 22:25 95 H 98 08/19/21 22:20 85 99 08/19/21 22:16 89 145/71 H 08/19/21 22:15 93 H 100 08/19/21 22:10 96 H 98 08/19/21 22:05 91 H 99 08/19/21 22:03 87 150/75 H 08/19/21 22:01 37.3 C 18 08/19/21 22:00 80 18 99 08/19/21 21:55 86 98 08/19/21 21:50 85 99 08/19/21 21:46 88 141/71 H 08/19/21 21:45 88 98 08/19/21 21:40 95 H 97 08/19/21 21:35 83 98 01/18/22 21:31 84 142/77 H 08/19/21 21:30 83 18 97 08/19/21 21:25 86 98 08/19/21 21:20 89 98 08/19/21 21:17 89 142/78 H 08/19/21 21:15 85 98 08/19/21 21:10 94 H 97 08/19/21 21:05 88 98 08/19/21 21:02 84 133/71 08/19/21 21:00 87 20 98 08/19/21 20:55 87 99 08/19/21 20:50 83 98 08/19/21 20:47 82 126/64 08/19/21 20:45 83 99 08/19/21 20:40 85 99 08/19/21 20:35 83 99 08/19/21 20:32 94 H 125/59 L 08/19/21 20:30 91 H 18 98 08/19/21 20:25 89 97 08/19/21 20:21 36.5 C
[2021-08-20 10:51] LABS: Appearance Urine Turbid (Clear); Bacteria Urine Automated Negative (Negative); Blood Urine 3+ (Negative); Color Urine Orange; Glucose Urine UA Negative (Negative); Ketones Urine Trace (Negative); Leukocyte Esterase Urine 1+ (Negative); Nitrite Urine Positive (Negative); Protein Urine 1+ (Negative); RBC Urine Automated >30 /hpf (0-4); Specific Gravity Urine 1.027 (1.000-1.030); Urobilinogen Urine Negative (Negative)
[2021-08-20] MEDS: SIMETHICONE 80 MG CHEW PO PRN (10:57)
[2021-08-20 10:58] LABS: Bilirubin Urine 1+ (Negative)
[2021-08-20 11:58] LABS: Hematocrit (blood only) 26.5 % (37-47); Hemoglobin 9.1 g/dL (12.0-16.0); Mean Corpuscular Hemoglobin 30.8 pg (25-34); Mean Corpuscular Hgb Conc 34.3 g/dL (32-36); Mean Corpuscular Volume 89.8 fL (80-100); RDW Coefficient of Variation 14.7 % (11.5-14.5); RDW Standard Deviation 48.5 fL (36.4-46.3); Red Blood Count 2.95 M/uL (4.2-5.4)
[2021-08-20 12:06] LABS: Mean Platelet Volume 10.3 fL (7.4-10.4); Platelet Count 31 K/uL (130-400)
[2021-08-20] MEDS: SIMETHICONE 80 MG CHEW PO SCH ×4 (12:31→21:56)
[2021-08-20 12:41] LABS: Albumin Globulin Ratio 1.2 (0.9-2); Albumin Level 2.7 gm/dl (3.4-5.0); Bilirubin,Total 2.8 mg/dl (0.2-1.0); Calcium 6.6 mg/dl (8.5-10.1); Creatinine Clr Calc Pharmacy 142.7 ml/min; Est GFR (African American) 145.3 ml/min; Est GFR (Non-African American) 125.3 ml/min; Globulin 2.2 gm/dl (2.5-4.0); Magnesium Therapeutic L&D Only 5.8 mg/dL (4.0-8.0); Potassium 4.1 mmol/L (3.5-5.1); Total Protein 4.9 gm/dl (6.0-8.3)
[2021-08-20 18:20] LABS: Platelet Count 25 K/uL (130-400)
[2021-08-20 18:29] LABS: Albumin Globulin Ratio 1.3 (0.9-2); Albumin Level 2.7 gm/dl (3.4-5.0); BUN Creatinine Ratio 24.1 (10-20); Bilirubin,Total 2.6 mg/dl (0.2-1.0); Calcium 6.5 mg/dl (8.5-10.1); Creatinine Clr Calc Pharmacy 152.6 ml/min; Est GFR (African American) 148.5 ml/min; Est GFR (Non-African American) 128.1 ml/min; Globulin 2.1 gm/dl (2.5-4.0); Magnesium Therapeutic L&D Only 5.9 mg/dL (4.0-8.0); Potassium 4.1 mmol/L (3.5-5.1); Total Protein 4.8 gm/dl (6.0-8.3)
[2021-08-20 18:40] LABS: Hematocrit (blood only) 25.8 % (37-47); Hemoglobin 8.8 g/dL (12.0-16.0); Mean Corpuscular Hemoglobin 30.9 pg (25-34); Mean Corpuscular Hgb Conc 34.1 g/dL (32-36); Mean Corpuscular Volume 90.5 fL (80-100); Platelet Estimate Decreased (Normal); RDW Standard Deviation 49.5 fL (36.4-46.3); Red Blood Count 2.85 M/uL (4.2-5.4); White Blood Count 11.61 K/uL (4.8-10.8)
[2021-08-20] MEDS ORDERED: MEPERIDINE HCL 50 MG/ML CARP IV PRN (19:09)
[2021-08-20] MEDS ORDERED: PROMETHAZINE HCL 25 MG in SODIUM CHLORIDE 0.9% 50 ML IV PRN (19:09)
[2021-08-20] MEDS ORDERED: diphenhydrAMINE Capsule 25 MG CAP PO PRN (19:09)
--- NOTE | 2021-08-20 20:43 | Obstetrical Progress Note ---
Date of Service August 20, 2021 Assessment & Plan Admission and Anticipated Discharge Date Admission Date: August 19, 2021 Subjective Late note due to patient care duties: Patient rec'd 1u platelets this morning. She then had repeat labs at noon quickly after infusion showing small drop in platelets, but improvement in liver enzymes. Then tonight's 6pm labs returned with a further drop in platelets to 25. Since delivery, platelets have dropped 60 ->42 -> 31 -> 25. Patient is feeling well, good urine output in buck. Epigastric pain has improved. Appropriate vaginal lochia, no bleeding from incision site or IV access sites. I discussed with patient that the anticipated timeline for improvement in labs after delivery in HELLP syndrome would be within 24-48h after delivery. The majority of cases begin to improve in this timeframe. However, since her platelets have dropped to 25, she may possibly need more platelet transfusions prior to seeing improvement. At this time, our blood bank does not have any remaining platelets available. Regionally, there is a shortage and [facility] does not have any available for our hospital either. Per blood bank, the next earliest time to request platelets is in the morning, and there is no guarantee that there will be any available at that time either. I discussed this information with patient, and recommended that we transfer her to a center that will be better able to provide blood products if needed. She was agreeable. I called [facility] and discussed with [facility] Dr Valdivia, who agreed with transfer and was able to accept patient. I reviewed consent with patient for ground transport and answered questions. Provided emotional support. Nursery has discussed with tibco developer - anticipate that if all goes well with baby, will hope to be able to discharge baby in the morning so he can be brought to [place] with family to be able to be at bedside with mom and continue /bonding. Patient also asked me to update her mother Cee by phone, gave me verbal permission to discuss case with her mother and answer questions. Results & Data ([facility]) Vital Signs (Past 12 Hours) Vital Signs Temp Pulse Resp BP Pulse Ox 08/20/21 20:36 106 H 98 08/20/21 20:31 108 H 98 08/20/21 20:26 111 H 98 08/20/21 20:21 107 H 98 08/20/21 20:16 108 H 98 08/20/21 20:11 107 H 98 08/20/21 20:06 110 H 99 08/20/21 20:01 106 H 118/55 L 98 08/20/21 20:00 18 08/20/21 19:56 118 H 99 08/20/21 19:51 107 H 98 08/20/21 19:46 108 H 98 08/20/21 19:41 107 H 98 08/20/21 19:36 113 H 99 08/20/21 19:31 110 H 98 08/20/21 19:26 113 H 99 08/20/21 19:21 107 H 99 08/20/21 19:16 111 H 98 08/20/21 19:11 114 H 98 08/20/21 19:06 118 H 98 08/20/21 19:05 114 H 138/63 08/20/21 19:01 130 H 98 08/20/21 18:56 111 H 98 08/20/21 18:51 100 H 99 08/20/21 18:46 104 H 98 08/20/21 18:41 105 H 98 08/20/21 18:36 101 H 99 08/20/21 18:08 92 H 124/57 L 08/20/21 18:05 98 H 98 08/20/21 18:00 99 H 18 99 08/20/21 17:55 97 H 100 08/20/21 17:50 95 H 98 08/20/21 17:45 93 H 99 08/20/21 17:40 92 H 99 08/20/21 17:35 105 H 97 08/20/21 17:30 101 H 97 08/20/21 17:25 101 H 96 08/20/21 17:20 107 H 96 08/20/21 17:15 104 H 99 08/20/21 17:10 103 H 96 08/20/21 17:05 104 H 98 08/20/21 17:01 102 H 121/58 L 08/20/21 17:00 101 H 18 96 08/20/21 16:55 100 H 98 08/20/21 16:50 101 H 98 08/20/21 16:49 36.6 C 08/20/21 16:45 103 H 98 08/20/21 16:40 98 H 97 08/20/21 16:35 100 H 98 08/20/21 16:30 97 H 98 08/20/21 16:25 103 H 98 08/20/21 16:20 102 H 98 08/20/21 16:15 105 H 98 08/20/21 16:10 99 H 98 08/20/21 16:05 105 H 96 08/20/21 16:00 102 H 105/57 L 97 08/20/21 15:55 112 H 98 08/20/21 15:50 112 H 97 08/20/21 15:45 109 H 97 08/20/21 15:40 111 H 18 98 08/20/21 15:35 101 H 98 08/20/21 15:30 102 H 98 08/20/21 15:25 98 H 98 08/20/21 15:20 103 H 99 08/20/21 15:15 101 H 98 08/20/21 15:10 107 H 98 08/20/21 15:05 108 H 98 08/20/21 15:00 173 H 20 141/88 H 98 08/20/21 14:55 110 H 98 08/20/21 14:50 110 H 99 08/20/21 14:45 115 H 96 08/20/21 14:40 111 H 97 08/20/21 14:35 105 H 98 08/20/21 14:30 100 H 20 99 08/20/21 14:25 102 H 97 08/20/21 14:20 111 H 98 08/20/21 14:15 104 H 98 08/20/21 14:10 100 H 98 08/20/21 14:05 99 H 99 08/20/21 14:00 96 H 20 107/58 L 99 08/20/21 13:55 99 H 96 08/20/21 13:50 96 H 96 08/20/21 13:45 96 H 96 08/20/21 13:40 97 H 96 08/20/21 13:35 94 H 96 08/20/21 13:30 97 H 20 96 08/20/21 13:25 97 H 95 08/20/21 13:20 96 H 96 08/20/21 13:15 94 H 96 08/20/21 13:10 97 H 95 08/20/21 13:05 98 H 95 08/20/21 13:00 97 H 18 102/55 L 94 08/20/21 12:55 101 H 96 08/20/21 12:50 94 H 96 08/20/21 12:45 100 H 95 08/20/21 12:40 100 H 96 08/20/21 12:35 98 H 95 08/20/21 12:30 99 H 20 95 08/20/21 12:25 103 H 95 08/20/21 12:20 104 H 95 08/20/21 12:15 101 H 95 08/20/21 12:10 102 H 95 08/20/21 12:05 102 H 95 08/20/21 12:00 103 H 18 112/50 L 96 08/20/21 11:55 105 H 94 08/20/21 11:50 111 H 95 08/20/21 11:45 119 H 95 08/20/21 11:40 110 H 95 08/20/21 11:35 116 H 95 08/20/21 11:30 118 H 95 08/20/21 11:25 118 H 95 08/20/21 11:22 37.3 C 118 H 18 111/57 L 95 08/20/21 11:20 120 H 95 08/20/21 11:15 120 H 96 08/20/21 11:10 114 H 94 08/20/21 11:05 115 H 96 08/20/21 11:00 109 H 20 111/57 L 94 08/20/21 10:55 107 H 95 08/20/21 10:50 111 H 95 08/20/21 10:45 110 H 97 08/20/21 10:40 106 H 96 08/20/21 10:35 105 H 96 08/20/21 10:30 108 H 97 08/20/21 10:25 106 H 98 08/20/21 10:20 102 H 97 08/20/21 10:15 101 H 98 08/20/21 10:10 101 H 99 08/20/21 10:09 101 H 108/60 08/20/21 10:05 103 H 96 08/20/21 10:00 111 H 20 106/59 L 99 08/20/21 09:55 110 H 96 08/20/21 09:50 103 H 96 08/20/21 09:49 103 H 112/57 L 08/20/21 09:45 106 H 97 08/20/21 09:40 110 H 97 08/20/21 09:35 101 H 98 08/20/21 09:33 100 H 116/60 08/20/21 09:31 36.4 C L 102 H 116/60 08/20/21 09:30 112 H 96 08/20/21 09:25 112 H 97 08/20/21 09:20 106 H 96 08/20/21 09:15 117 H 97 08/20/21 09:11 37.1 C 119 H 20 111/52 L 08/20/21 09:10 110 H 96 08/20/21 09:05 111 H 95 08/20/21 09:04 110 H 113/56 L 08/20/21 09:00 113 H 18 98 08/20/21 08:55 114 H 96 08/20/21 08:51 116 H 94 08/20/21 08:50 114 H 111/52 L 94 08/20/21 08:45 110 H 94 08/20/21 08:40 112 H 94 08/20/21 08:39 110 H 94 PG Care Time/CCT Total # of Minutes Spent Total Time Spent with Patient: Total time spent is greater than 50% in coordination of care (as documented) at patient's floor/unit and/or counseling patient: Coding Level of Care Code None
[2021-08-20] MEDS ORDERED: MEPERIDINE HCL 25 MG/ML CARP/VIAL ONE (20:44)
[2021-08-20 23:01] LABS: Partial Thromboplastin Ratio 1.2; Partial Thromboplastin Time 31.9 Seconds (21.0-31.0)
--- NOTE | 2021-08-21 09:16 | Communication Note ---
Date of Service: August 21, 2021 I called patient's cell phone to check in with her this morning after last night's transport to [place]. She has not yet needed platelet transfusion, sta grace platelets at last check are now 35. Feeling ok, looking forward to seeing baby later today. She is glad that she has been transferred at [place] - feels like she is continuing to receive good care.
--- NOTE | 2021-08-21 13:00 | Discharge Summary (DS) ---
DATE OF ADMISSION: 08/19/2021 DATE OF DISCHARGE: 08/20/2021, transfer to an outside facility. ADMIT DIAGNOSES: 1. Intrauterine at 38 and 0/7th weeks. 2. Hemolysis, elevated liver enzymes, low platelet count syndrome. DISCHARGE DIAGNOSIS: Worsening thrombocytopenia with unavailability of platelets. PROCEDURES: 1. Pitocin augmentation. 2. Amniotomy for clear fluid. 3. Primary section. 4. Transfer to [place]. HISTORY: The patient is a 25-year-old white female, G1, P0, presents to labor and delivery with uppe r abdominal pain. She notes a sudden onset of this pain at 4:00 p.m. yesterday and it has persisted. She talked to the on-call doctor x2, recommended things for gas, hot shower/bath. She tried a dose of Maalox last night and it did not touch it. She notes this has been constant since onset and rate s it a 7/10. She has a hard time finding a comfortable position. She notes that she feels short of breath because every time she tries to take a deep breath, she notes discomfort in the upper abdomen, but not particularly discomfort in the chest. She notes this pain across her upper abdomen on both sides, it goes up into the mid-chest and occasionally in the left shoulder. The patient notes a angel le mucus discharge, but no leakage of fluid or vaginal bleeding. She does have her gallbladder. The patient notes that she has not had a lot of burping, notes passing gas and some small amount of diar polly this a.m. She notes that she has also lower back pain that is coming and going. She initially was in the ED and briefly evaluated. EKG was normal. Pulse was in the 60s and so she is now up here to be evaluated. She notes good movement. She had labs drawn in the Emergency Department [facility] wing platelets of 107,000. ____ in the mid 200s. Creatinine normal. She was COVID negative. Labs drawn an hour later, her platelets dropped to 95,000. For the rest of the patient's detailed history and physical, please see her history and physical. ASSESSMENT: This is a at 38 and 0/7th weeks with probable hemolysis, elevated liver enzyme s, low platelet count syndrome. Therefore, she has preeclampsia with severe features. HOSPITAL COURSE: The patient was admitted for induction. Her cervix was favorable, so Pitocin was s tarted. Fetus was category 1. As she had severe features, magnesium sulfate prophylaxis was started . She had an epidural placed immediately when her platelets were 95,000 in anticipation of needing t his and the possibility of her platelets dropping further. Subsequently, the patient underwent amnio clive when she was 3 cm dilated for clear fluid. I discussed this patient with MFM at [facility]. They agreed with the diagnosis of HELLP. They said there was no way to differentiate this from acute fatty liver of and agreed with magnesium sulfate prophylaxis. Unfortunately, th e patient's platelets continued to drop precipitously starting out at 107,000. When she dropped to 67 ,000 platelets, I talked to the patient about the situation. We have limited amount of platelets her e and we were remote from delivery and they will continue to drop while she was , so I recomm ended delivery and she was agreeable to this. The patient underwent a primary low transverse section without difficulty to deliver a viabl e with Apgars of 7 and 8. Uterus, tubes and ovaries were noted bilaterally. There was not si gnificant oozing or bleeding with the surgery. Estimated blood loss for the surgery was 600 mL. She was given intramuscular Hemabate into the uterine muscle. After the procedure, her legs were opened, fundal pressure was given. There was probably another 500 mL of blood and clot that was released fr om the uterus. She received Cytotec 800 mcg rectally. The patient was taken back to recovery and mo nitored closely. Magnesium sulfate was continued. Unfortunately, her platelets continued to drop. Two hours after th e surgery, they were 60,000 and the following morning, they were 42,000. At that point in time, the patient got one dose pack of platelets. Shortly after that, her platelets were 31,000 and then event ually drop to 25,000. We unfortunately did not have enough platelets and in fact had none in the [facility] to be able to transfuse her, so she was transferred to the [facility] for further m anagement and possible need for blood product transfusion that were not available at our hospital. Th e patient clinically improved significantly after the surgery with near resolution of her upper abdom inal pain. Her urine output remained good. Her creatinine status remained normal. Her ALT peaked a t 484, her AST peaked at 465 and were slowly dropping throughout. Her bilirubin peaked at 3.0. Her L DH peaked at 631. The patient was transferred by ambulance as she was in stable condition at that time. The patient was not showing any active bleeding at the time, her H and H prior to discharge was 8.8 and 25.8. She s tarted at 12.8 and 37.6. This seems like a reasonable blood loss for her surgery, but of course, the y will continue to monitor this at [place]. Job ID: [id number]
[2021-08-21] MEDS ORDERED: bisacodyL 5 MG TABEC PO SCH (20:00)
[2021-08-22] MEDS ORDERED: bisacodyL 10 MG SUPP PR PRN (01:12)
== END 2021-08-20 22:50 | disposition short-term general hospital (02) | DRG 788 ==
LOC: OPB 12:24 → 4S1 12:25

== ENCOUNTER 2024-11-15 05:49 | Inpatient (IN) ==
--- NOTE | 2024-11-15 06:47 | History & Physical Report ---
Date of Service November 15, 2024 Assessment & Plan (1) History of HELLP syndrome, currently : Plan: Ewa is a 28-year-old G2, P1 currently 38 weeks 0 days gestational age presents with spontaneous rupture of membranes with plan for repeat . Consent forms for reviewed and signed. Procedure discussed in detail (2) Previous delivery affecting , antepartum: (3) Need for rhogam due to Rh negative mother: (4) SROM (spontaneous rupture of membranes): History of Present Illness Primary Care Provider: EVELYNE Giron 28yo at weeks GA presents with SROM. Plan for repeat and Delivery Plans Hx severe HELLP, preeclampsia with prior - ASA 81mg at 12 weeks. -24hr urine-124.7 06/19 Anterior placenta, ? previa. see note * recheck placenta at 24wk visit----normal and not low lying Prior -wanting rpt csection C/S SCHEDULED FOR 11/23/[address] WILLIS C/S RESCHEDULED TO 11/27/[address] CONRAD Need for Rhogam d/t Rh neg mother -Rhogam given 09/08/24- MK Rubella equivocal - vaccine Hep B non immune OB Labs: Blood Type O Negative 04/19/24 Antibody Screen NEGATIVE 09/08/24 Hgb 11.3 g/dl (12.0-16.0) L 09/08/24 Hct 33.9 % (37.0-47.0) L 09/08/24 MCV 87.8 fL (80.0-100.0) 04/19/24 Plt Count 270 K/uL (130-400) 04/19/24 Rubella IgG Antibody Equivocal (Immune) L 04/19/24 RPR Nonreactive (Nonreactive) 01/23/21 Treponema pallidum Ab Negative (Negative) 09/08/24 Hep Bs Antigen Negative (Negative) 04/19/24 Hepatitis C Antibody Negative (Negative) 04/19/24 HIV 1&2 Ab/P24 Ag 4thGn Negative (Negative) 04/19/24 Glucose 1 Hr 50 gm 122 mg/dl (70-130) 09/08/24 OB Optional Labs: Chlamydia trachomatis RNA Not Detected (NotDetected) 04/19/24 Neisseria gonorrhoeae RNA Not Detected (NotDetected) 04/19/24 Labs Reviewed: declines genetics/cf/sma Allergies Allergy/AdvReac Type Severity Reaction Status Date / Time bee venom protein (honey bee) Allergy Unknown Anaphylaxis Verified 11/15/24 06: 06 Home Medications Medication Instructions Recorded Confirmed Type aspirin 81 mg tablet,delayed 81 mg PO DAILY 11/10/24 11/15/24 History release diphenhydramine HCl 25 mg capsule 25 mg PO HS PRN seasonal allergies 11/10/24 11/15/24 History (Benadryl) epinephrine 0.3 mg/0.3 mL 0.3 mg IM UD PRN anaphylaxis 11/10/24 11/15/24 History injection, auto-injector vit no.95-ferrous 1 tab PO DAILY 11/10/24 11/15/24 History fumarate 28 mg-folic acid 800 mcg tablet () Patient History Medical History Anxiety Controlled without medication Bee sting allergy History of COVID-19 2021 History of depression History of gastroesophageal reflux (GERD) History of HELLP syndrome, currently History of migraine headaches Surgical History H/O oral surgery WTE History of Family History Grandmother (Maternal) Diabetes Father Hypertension Mother Hypertension Denies family history of Ovarian cancer Breast cancer Colorectal cancer Social History (Updated 04/12/24 @ 09:54 by Naomie Luque) Smoking Status: Never smoker Second Hand Exposure: No; Do You Dip or Chew Tobacco: No; Hx Alcohol Use: No Hx Substance Use: No Preferred Language: Icelandic Communication Ability: Effective Hearing Ability: Normal Collection Systems Technician Required: No Beliefs That Will Affect Care: None marital status: marital status details: Bal Murry (29) [phone] Current Living Situation: Spouse Current Living Situation Comment: lives with spouse, child, dogs. current occupational status: employed current occupation: [employer] How many Children do You have: 1 Other Information That Helps Us Care for You: No Feels Safe at Home: Yes Safety Concerns: Feels Safe At This Time caffeine: No during the past year weight has: decreased > 10 lbs Dental Care, Regularly: Yes Physical Activity Frequency: Daily Seatbelt Use: always Sunscreen Use: Yes Assistive Devices: Contacts and Glasses Physical Exam Genitourinary: Manual OB Exam: + amniotic fluid clear OB Exam Monitor Tracing: + external FHT monitor used, + external uterine monitor used, + category I and + normal FHT variability Gross ROM noted on exam Results & Data Vital Signs (Past 12 Hours) Vital Signs Temp Pulse Resp BP 11/15/24 06:08 36.8 C 79 18 117/56 L 11/15/24 06:02 36.8 C 79 18 117/56 L Coding Level of Care Code None Diagnoses History of HELLP syndrome, currently O09.299 Previous delivery affecting , antepartum O34.219 Need for rhogam due to Rh negative mother Z29.13 SROM (spontaneous rupture of membranes)
[2024-11-15] MEDS ORDERED: DEXAMETHASONE SOD INJ 4 MG/ML VIAL ONE (06:48)
[2024-11-15] MEDS ORDERED: PHENYLEPHRINE 100MCG/ML 5ML SYR ONE (06:48)
[2024-11-15] MEDS ORDERED: ONDANSETRON INJ 2 MG/ML 2 ML VIAL ONE (06:49)
[2024-11-15] MEDS ORDERED: PHENYLEPHRINE HCL 25 MG/250 ML NSS IV ONE (06:49)
[2024-11-15] MEDS ORDERED: MoRPHine SULFATE PF 1 MG/ML 10 ML AMP/VIAL ONE (06:53)
[2024-11-15] MEDS ORDERED: fentaNYL citrate PF 100 MCG/2 ML VIAL ONE (06:53)
[2024-11-15] MEDS: LACTATED RINGER'S 1,000 ML IV SCH (06:55)
[2024-11-15 06:57] LABS: Hematocrit (blood only) 35.5 % (37.0-47.0); Hemoglobin 12.2 g/dl (12.0-16.0); Mean Corpuscular Hemoglobin 29.5 pg (25.0-34.0); Mean Corpuscular Hgb Conc 34.4 g/dL (32.0-36.0); Mean Platelet Volume 10.8 fL (9.4-12.4); Platelet Count 174 K/uL (130-400); RDW Coefficient of Variation 14.5 % (11.5-14.5); RDW Standard Deviation 45.4 fL (36.4-46.3); Red Blood Count 4.13 M/uL (4.20-5.40); White Blood Count 9.73 K/ul (4.8-10.8)
[2024-11-15] MEDS: ACETAMINOPHEN 500 MG TAB PO SCH (07:01)
[2024-11-15] MEDS: CITRIC ACID/SODIUM CITRATE 15 ML UDC PO SCH (07:01)
[2024-11-15] MEDS ORDERED: LACTATED RINGER'S 1,000 ML IV SCH ×2 (07:45→09:00)
[2024-11-15] MEDS: ceFAZolin 2000MG 2,000 MG/15 ML SYR IV SCH (07:48)
[2024-11-15] MEDS ORDERED: ePHEDrine sulfate 50 MG/ML AMP IV PRN (08:27)
[2024-11-15] MEDS ORDERED: diphenhydrAMINE 50 MG/ML VIAL IV PRN (08:27)
[2024-11-15] MEDS ORDERED: NALOXONE HCL 1 MG in SODIUM CHLORIDE 0.9% 1,000 ML IV PRN (08:27)
[2024-11-15] MEDS ORDERED: NALBUPHINE HCL INJ 10 MG/ML AMP IV PRN (08:27)
[2024-11-15] MEDS ORDERED: oxyCODONE HCL IR 5 MG TAB (IMMEDIATE RELEASE) PO PRN (08:27)
[2024-11-15] MEDS ORDERED: HYDROmorphone INJ 0.5 MG/0.5 ML SYR IV PRN ×2 (08:27→09:00)
[2024-11-15] MEDS ORDERED: MoRPHine SULFATE PF 1 MG/ML 10 ML AMP/VIAL INT SPINAL ONE (08:27)
[2024-11-15] MEDS ORDERED: NALOXONE HCL 0.4 MG/1 ML VIAL/CARP IV PRN (08:27)
[2024-11-15] MEDS ORDERED: NALOXONE HCL 0.08 MG in SYRINGE 1.8 ML IV PRN (08:27)
[2024-11-15] MEDS ORDERED: PROMETHAZINE 6.25 MG/50.25 ML BAG IV PRN (08:27)
[2024-11-15] MEDS ORDERED: NO NARCOTICS OR SEDATIVES SCH (08:30)
[2024-11-15] MEDS ORDERED: DC INTRASPINAL MORPHINE SCH (08:30)
[2024-11-15] MEDS ORDERED: ePHEDrine sulfate 50 MG/5 ML SYR ONE (08:41)
[2024-11-15] MEDS: OXYTOCIN 20 UNITS/LR 1,002 ML IV SCH (09:00)
[2024-11-15] MEDS ORDERED: CALCIUM CARBONATE 500 MG CHEWABLE TAB PO PRN (09:00)
[2024-11-15] MEDS ORDERED: BENZOCAINE 20% SPRY 85 APPLN/85 GM CAN EXT PRN (09:00)
[2024-11-15] MEDS ORDERED: MAGNESIUM HYDROXIDE SUSP 30 ML UDC PO PRN (09:00)
[2024-11-15] MEDS ORDERED: HYDROCORTISONE ACETATE 25 MG SUPP PR PRN (09:00)
[2024-11-15] MEDS ORDERED: SENNA 8.6 MG TAB PO PRN (09:00)
[2024-11-15] MEDS ORDERED: DIPHTHER/TETAN/PERTUS Vaccine (Tdap, Adol/Adult) 0.5mL IM ONE (09:00)
--- NOTE | 2024-11-15 09:08 | Operative Report ---
PG Post Operative Report Pre & Post Diagnosis Operation Date: 11/15/24 06:45 Pre-Op Diagnosis: Prior SECTION, term at 38 weeks Post-Op Diagnosis: Same status postdelivery I identified the patient and participated in the time-out.: Yes Procedure Operation Date: 11/15/24 06:45 Actual Procedures p Section in - Shayan Garcia MD Surgeon Shayan Garcia MD Electrical Sign Wirer L&D staff Estimated Blood Loss 730 Findings Consistent with Post-Op Diagnosis Specimens None Description of Procedure Patient was taken the operating room after consent was ensured. Upon presentation she was properly identified. Anesthesia obtained and patient prepped and draped in normal sterile fashion. Preprocedural timeout was performed. A Pfannenstiel incision was made with a knife. This was carried down to underlying fascia with the Bovie and blunt dissection. The fascia was nicked at the midline with a knife and extended laterally with blunt dissection. Abdominal cavity was entered bluntly and placed on stretch to provide adequate room for delivery. A low transverse uterine incision was made with a knife. Breech presentation was confirmed. Caudal end of the was delivered without difficulty. Internal rotation at the hip to deliver the bilateral feet. Delivery continue to level shoulder and arms were internally rotated at the shoulder to deliver both arms atraumatically. And quickly followed and was noted to be vigorous soon after delivery. A 30 second delayed cord clamping was initiated the cord was double clamped and cut and taken to the waiting nursery staff. Attention was turned to delivery of the placenta which delivered intact with three-vessel cord gentle cord traction. Uterus was exteriorized and several passes were made to remove any remaining membranes with a dry lap. Hysterotomy was reapproximated with 0 Vicryl continuous running lock stitch with a second imbricating layer performed. Excellent hemostasis noted. Posterior cul-de-sac cleaned of clots and debris's. Uterus returned maternal abdomen and right left paracolic gutters cleaned of clots and debris's. Hysterotomy remained hemostatic. Subcutaneous, fascia and muscle layers inspected noted be hemostatic. Fascia was reapproximated 0 Vicryl continuous running stitch. Subcutaneous layer reapproximated 2 layers using 2-0 plain. Skin reapproximated with 3-0 Vicryl and continuous subcuticular stitch. Dermabond placed on top. Both mother and in stable condition at the completion of the case. Needle sponge and instrument counts correct at the completion of the case. No complications noted and blood loss per QBL in chart. I attest to the content of the Intraoperative Record and any orders documented therein. Any exceptions are noted below. OB Procedure charges OB Charges 93580
[2024-11-15] MEDS: KETOROLAC 30 MG/ML VIAL IV SCH (09:13)
--- NOTE | 2024-11-15 09:16 | Anesthesiology Progress Note ---
Date of Service November 15, 2024 Anesthesia Post Procedure Vital Signs Vital Signs: Temp Pulse Resp BP Pulse Ox 11/15/24 09:13 239/167 H 11/15/24 09:11 100 11/15/24 09:11 71 11/15/24 09:06 99 11/15/24 09:06 87 11/15/24 09:01 100 11/15/24 09:01 75 11/15/24 09:01 117/62 11/15/24 07:19 36.6 C 16 11/15/24 06:08 36.8 C 79 18 117/56 L 11/15/24 06:02 36.8 C 79 18 117/56 L Transfer of Care Handoff Completed per policy Notes Mental Status: alert / awake / arousable and participated in evaluation Patient Amnestic to Procedure: Yes Nausea / Vomiting: adequately controlled Pain: adequately controlled Airway Patency, RR, SpO2: stable & adequate BP & HR: stable & adequate Hydration State: stable & adequate Neuraxial Anesthesia: was administered and sensory block is resolving Anesthetic Complications: no major complications apparent and Pt Satisfied with anesthetic care
[2024-11-15] MEDS: ONDANSETRON INJ 2 MG/ML 2 ML VIAL IV PRN (13:23)
[2024-11-15] MEDS: SIMETHICONE 80 MG CHEW PO SCH (15:36)
[2024-11-15] MEDS: ACETAMINOPHEN 325 MG TAB PO SCH (15:36)
[2024-11-15] MEDS: DOCUSATE SODIUM 100 MG CAP PO SCH (21:44)
[2024-11-16] MEDS ORDERED: HYDROmorphone INJ 0.5 MG/0.5 ML SYR IV PRN (02:27)
[2024-11-16] MEDS ORDERED: ONDANSETRON INJ 2 MG/ML 2 ML VIAL IV PRN (02:27)
[2024-11-16] MEDS ORDERED: oxyCODONE HCL IR 5 MG TAB (IMMEDIATE RELEASE) PO PRN (02:27)
[2024-11-16] MEDS ORDERED: diphenhydrAMINE 50 MG/ML VIAL IV PRN (02:27)
[2024-11-16] MEDS ORDERED: diphenhydrAMINE Capsule 25 MG CAP PO PRN (02:27)
[2024-11-16] MEDS ORDERED: PROMETHAZINE 12.5 MG/50.5 ML BAG IV PRN (02:27)
[2024-11-16 06:48] LABS: Hematocrit (blood only) 25.2 % (37.0-47.0); Hemoglobin 8.6 g/dl (12.0-16.0); Mean Corpuscular Hgb Conc 34.1 g/dL (32.0-36.0); Mean Corpuscular Volume 87.8 fL (80.0-100.0); Platelet Count 117 K/uL (130-400); RDW Coefficient of Variation 14.7 % (11.5-14.5); RDW Standard Deviation 47.7 fL (36.4-46.3); Red Blood Count 2.87 M/uL (4.20-5.40); White Blood Count 9.38 K/ul (4.8-10.8)
--- NOTE | 2024-11-16 06:48 | Obstetrical Progress Note ---
Date of Service <Yris Benavides MD - Last Filed: 11/16/24 07:21> November 16, 2024 Assessment & Plan <Yris Benavides MD - Last Filed: 11/16/24 07:21> (1) care and examination: Plan POD#1 s/p rLTCS at 38 wga: Stable. Rh+, gbs neg, ri, vitals & H/H wnl Continue routine care, OOB and ambulation, diet as tolerated Work on bowel fxn, probable DC tomorrow <Samira Reyes MD - Last Filed: 11/16/24 07:22> (1) care and examination: Subjective <Yris Benavides MD - Last Filed: 11/16/24 07:21> Patient is a 28yo who is POD#1 following repeat at 38 weeks. Minimal abd pain/cramping, well managed on analgesics Voiding w/o issue Tolerating meals Ambulating normally No BM or flatus yet Lochia minimal, diminishing Planning to breastfeed. Constitutional: no fever, no chills or no sweats Respiratory: no dyspnea Cardiovascular: no chest pain, no palpitations or no calf pain Breast: no breast pain Gastrointestinal: no nausea or no vomiting Genitourinary (female): no dysuria Neurologic: no headache(s) no changes in vision, no headaches Physical Exam <Yris Benavides MD - Last Filed: 11/16/24 07:21> General: Alert, oriented. No acute distress. Cardiac: Regular rate and rhythm, no murmurs, rubs, or gallops. Respiratory: Clear to auscultation bilaterally. No increased work of breathing. Symmetrical chest rise. No respiratory distress. Abdomen: Soft, nontender, nondistended. Bowel sounds present. Uterus: Uterine fundus firm, nontender, palpable 1 cm below the umbilicus. Surgical scar clean, dry healing well. Lower extremities: No lower extremity edema or swelling. No deep calf pain. Results & Data <Yris Benavides MD - Last Filed: 11/16/24 07:21> Vital Signs (Past 12 Hours) Vital Signs Temp Pulse Resp BP Pulse Ox O2 Del Method 11/16/24 02:55 36.7 C 71 18 109/70 98 Room Air 11/16/24 02:00 18 98 04/17/25 01:00 18 99 11/16/24 00:00 18 98 11/15/24 23:35 18 98 11/15/24 23:35 36.7 C 80 18 105/65 98 Room Air 11/15/24 22:00 18 97 11/15/24 21:00 18 98 11/15/24 20:20 18 97 11/15/24 20:20 Room Air 11/15/24 20:20 36.6 C 88 18 127/78 97 Room Air 11/15/24 19:20 18 98 Supervising Physician <Samira Reyes MD - Last Filed: 11/16/24 07:22> Co-Signing Physician Notes Resident Physician Supervision Note: I interviewed and examined the patient. Discussed with Dr. Meyer and agree with findings and plan as documented in the note. Any exceptions or clarifications are listed here: [ ] Documented By: Samira Reyes MD, FACOG Resident Activity Tracking <Yris Benavides MD - Last Filed: 11/16/24 07:21> Resident Involvement: Resident Care Provided Care Provided: Adult Hospital Medicine and OB Delivery
[2024-11-16 06:49] LABS: Basophils # (auto) 0.02 K/uL (0.00-0.20); Basophils % (auto) 0.2 %; Eosinophils # (auto) 0.04 K/uL (0.00-0.50); Eosinophils % (auto) 0.4 %; Immature Granulocytes % (auto) 1.1 %; Lymphocytes # (auto) 2.53 K/uL (1.20-3.40); Monocytes # (auto) 0.64 K/uL (0.11-0.59); Monocytes % (auto) 6.8 %; Neutrophils # (auto) 6.05 K/uL (1.40-6.50); Neutrophils % (auto) 64.5 %
[2024-11-16] MEDS: PRENATAL VITAMIN 1 TAB PO SCH (08:18)
[2024-11-16] MEDS: IBUPROFEN 600 MG TAB PO SCH (08:18)
[2024-11-16] MEDS: FERROUS SULFATE 325 MG TAB PO SCH (08:18)
[2024-11-16] MEDS ORDERED: KETOROLAC 30 MG/ML VIAL IV PRN (08:56)
[2024-11-16] MEDS: bisacodyL 5 MG TABEC PO SCH (20:50)
[2024-11-16 21:52] VITALS: RESP 18
--- NOTE | 2024-11-17 06:23 | Obstetrical Progress Note ---
Date of Service <Yris Benavides MD - Last Filed: 11/17/24 07:11> November 17, 2024 Assessment & Plan <Yris Benavides MD - Last Filed: 11/17/24 07:11> (1) care and examination: Plan POD#2 s/p rLTCS at 38 wga Rh+, gbs neg, ri, vitals & H/H stable Continue routine care, OOB and ambulation, diet as tolerated Plan for DC later today <Kim Stokes MD, FACOG - Last Filed: 11/17/24 07:20> (1) care and examination: Subjective <Yris Benavides MD - Last Filed: 11/17/24 07:11> Patient is a 28yo who is POD#2 following repeat at 38 weeks. Minimal abd pain/cramping, having some increased incisional pain which does respond to analgesics & icing Voiding, eating, drinking, passing gas, ambulating normally Lochia - minimal, diminishing Planning to breastfeed. Constitutional: no fever, no chills or no sweats Respiratory: no dyspnea Cardiovascular: no chest pain, no palpitations or no calf pain Breast: no breast pain Gastrointestinal: no nausea or no vomiting Genitourinary (female): no dysuria Neurologic: no headache(s) no changes in vision, no headaches Physical Exam <Yris Benavides MD - Last Filed: 11/17/24 07:11> General: Alert, oriented. No acute distress. Cardiac: Regular rate and rhythm, no murmurs, rubs, or gallops. Respiratory: Clear to auscultation bilaterally. No increased work of breathing. Symmetrical chest rise. No respiratory distress. Abdomen: Soft, nontender, nondistended. Bowel sounds present. Uterus: Uterine fundus firm, nontender, palpable 1 cm below the umbilicus. Surgical scar clean, dry healing well. Lower extremities: No lower extremity edema or swelling. No deep calf pain. Results & Data <Yris Benavides MD - Last Filed: 11/17/24 07:11> Vital Signs (Past 12 Hours) Vital Signs Temp Pulse Resp BP Pulse Ox O2 Del Method 11/16/24 23:00 36.7 C 96 H 18 110/72 99 Room Air 11/16/24 19:20 36.6 C 88 18 102/64 100 Room Air Laboratory Results 11/17/24 05:47 Supervising Physician <Kim Stokes MD, FACOG - Last Filed: 11/17/24 07:20> Co-Signing Physician Notes Resident Physician Supervision Note: I interviewed and examined the patient. Discussed with Dr. Benavides and agree with findings and plan as documented in the note. Any exceptions or clarifications are listed here: Doing well. Plan d/c. Instructions given. Documented By: Kim Stokes MD, FACOG Resident Activity Tracking <Yris Benavides MD - Last Filed: 11/17/24 07:11> Resident Involvement: Resident Care Provided Care Provided: Adult Hospital Medicine and OB Delivery
[2024-11-17 06:26] LABS: Hematocrit (blood only) 26.2 % (37.0-47.0); Hemoglobin 8.6 g/dl (12.0-16.0)
[2024-11-17] MEDS ORDERED: bisacodyL 10 MG SUPP PR PRN (08:56)
[2024-11-17] MEDS: IBUPROFEN 600 MG TAB PO PRN (10:21)
[2024-11-17 12:16] VITALS: BP 111/74; PULSE 81; TEMP 98.2; O2SAT 100
[2024-11-17] MEDS: MEASLES, MUMPS & RUBELLA VIRUS VACCINE (MMR) 0.5ML VIAL SQ ONE (12:31)
[2024-11-17] MEDS ORDERED: ACETAMINOPHEN 325 MG TAB PO PRN (14:56)
== END 2024-11-17 15:30 | disposition home or self-care (01) | DRG 788 ==
LOC: OPB 05:49 → 4S1 05:54 → 4E2 12:59